=== PATIENT | male | born 1940 | race Caucasian/White ===

== ENCOUNTER 2017-09-01 07:53 | Emergency (ER) | payer MEDICARE ==
[2017-09-01 07:58] VITALS: RESP 18; TEMP 98.3
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
--- NOTE | 2017-09-01 09:00 | XR ---
EXAMINATION TYPE: XR ribs LT w pa chest xray DATE OF EXAM: 09/01/2017 COMPARISON: NONE HISTORY: Pain, fall TECHNIQUE: 2 views left RIBS supplemented chest. FINDINGS: Heart size normal. Pulmonary vasculature is normal. Small pleural fluid collection is prese nt. No pneumothorax is evident. There is a seventh posterior oblique rib fracture with slight displacement. IMPRESSION: 1. 7th posterior left rib fracture. 2. No pneumothorax
--- NOTE | 2017-09-01 09:21 | US ---
EXAMINATION TYPE: US abdomen limited DATE OF EXAM: 09/01/2017 COMPARISON: NONE CLINICAL HISTORY: Pain. Fall EXAM MEASUREMENTS: Spleen: 9.0 cm Left Kidney: 9.2 x 5.5 x 4.8 cm Spleen: wnl Left Kidney: 4.7 x 3.5 x 2.7 cm cyst upper pole. This connects to the upper pole of the kidney and i s exophytic. This demonstrates increased through transmission. no abnormal fluid collection noted. IMPRESSION: 1. No perisplenic fluid collection. Spleen is homogeneous. 2. Incidentally noted exophytic left upper pole 4.7 cm renal cyst.
[2017-09-01 09:25] VITALS: BP 147/87; PULSE 62
== END 2017-09-01 09:58 | disposition home or self-care (01) ==
LOC: EC 07:53
DX: S22.32XA Fracture of one rib, left side, initial encounter for closed fracture (principal); I10 Essential (primary) hypertension; M10.9 Gout, unspecified; I12.9 Hypertensive chronic kidney disease with stage 1 through stage 4 chronic kidney disease, or unspecified chronic kidney disease; N18.3 Chronic kidney disease, stage 3 (moderate); Z79.899 Other long term (current) drug therapy; Z88.6 Allergy status to analgesic agent; Z88.8 Allergy status to other drugs, medicaments and biological substances; V19.9XXA Pedal cyclist (driver) (passenger) injured in unspecified traffic accident, initial encounter
CPT/HCPCS: 76705; 99284

== ENCOUNTER 2017-10-10 08:32 | Emergency (ER) | payer MEDICARE ==
[2017-10-10 08:37] VITALS: BP 149/77; PULSE 66; TEMP 98.3
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
[2017-10-10 10:03] VITALS: RESP 17
--- NOTE | 2017-10-10 10:16 | US ---
EXAMINATION TYPE: US venous doppler duplex LE LT DATE OF EXAM: 10/10/2017 9:54 AM COMPARISON: NONE CLINICAL HISTORY: Left lower extremity pain. SIDE PERFORMED: left TECHNIQUE: The lower extremity deep venous system is examined utilizing real time linear array sonog timothy with graded compression, doppler sonography and color-flow sonography. VESSELS IMAGED: External Iliac Vein (EIV) Common Femoral Vein Deep Femoral Vein Greater Saphenous Vein * Femoral Vein Popliteal Vein Small Saphenous Vein * Proximal Calf Veins (* superficial vessels) Grayscale, color doppler, spectral doppler imaging performed of the deep veins of the left lower extr emity. There is normal flow, compressibility, vascular waveforms. Left Leg: Negative for DVT Somewhat technically difficult due to motion. IMPRESSION: Slightly limited examination due to patient motion, however no gross evidence of deep ve nous thrombosis within the left lower extremity.
== END 2017-10-10 11:31 | disposition home or self-care (01) ==
LOC: EC 08:32
DX: M79.89 Other specified soft tissue disorders (principal); I12.9 Hypertensive chronic kidney disease with stage 1 through stage 4 chronic kidney disease, or unspecified chronic kidney disease; N18.3 Chronic kidney disease, stage 3 (moderate); M10.9 Gout, unspecified; N28.1 Cyst of kidney, acquired; Z79.899 Other long term (current) drug therapy; Z88.6 Allergy status to analgesic agent; Z88.8 Allergy status to other drugs, medicaments and biological substances
CPT/HCPCS: 99283

== ENCOUNTER 2018-10-20 19:59 | Emergency (ER) | payer MEDICARE ==
--- NOTE | 2018-10-20 20:21 | ED ---
Upper Extremity HPI - General Chief Complaint: Extremity Injury, Upper Stated Complaint: Clavical pain Time Seen by Provider: 10/20/18 20:09 Source: patient, RN notes reviewed, old records reviewed Mode of arrival: ambulatory Limitations: no limitations - History of Present Illness Initial Comments: This is a 78-year-old male presents emergency department today feeling that his clavicles out of place. Patient reports that he was pulling himself up to the car and feels like maybe his causes clavicle to come and of normal location. Patient reports he has no pain with range of motion of his arms. Patient states he has some tenderness over the clavicle area. He reports that the area seemed to encroach onto his Cody's apple. He reports he could feel some abnormalities while swallowing. Patient states that he has had no difficulty breathing or cough. - Related Data Home Medications Medication Instructions Recorded Confirmed Acetaminophen [Tylenol] 650 mg PO Q6HR PRN 07/01/17 10/10/17 Ergocalciferol [Vitamin D2] 50,000 unit PO Q14D 07/01/17 10/10/17 Colchicine [Colcrys] 0.6 - 1.2 mg PO DIRECTED PRN 09/01/17 10/10/17 Febuxostat [Uloric] 40 mg PO DAILY 09/01/17 10/10/17 Felodipine [Felodipine ER] 2.5 mg PO DAILY 09/01/17 10/10/17 Multivit-Min/FA/Lycopen/Lutein 1 tab PO DAILY 09/01/17 10/10/17 [Centrum Silver Tablet] Polyethylene Glycol 3350 [Miralax] 17 gm PO DAILY PRN 09/01/17 10/10/17 Ascorbic Acid [Vitamin C] 1,000 mg PO DAILY 10/10/17 10/10/17 Calcium/Magnesium/Zinc 1 tab PO DAILY 10/10/17 10/10/17 [Dqxsvph-Wtajxvtxz-Jtji Tablet] Clotrimazole/Betamethasone Dip 1 applic TOPICAL DAILY PRN 10/10/17 10/10/17 [Lotrisone Cream] Cyanocobalamin (Vitamin B-12) 1,000 mcg PO DAILY 10/10/17 10/10/17 [Vitamin B-12] Docusate Sodium 250mg 250 mg PO DAILY PRN 10/10/17 10/10/17 Fish Oil/Dha/Epa [Fish Oil 1,200 1 cap PO DAILY 10/10/17 10/10/17 mg Fish Oil] Methocarbamol [Robaxin] 250 mg PO DAILY PRN 10/10/17 10/10/17 Potassium 99 mg PO DAILY 10/10/17 10/10/17 Ubidecarenone [Co Q-10] 100 mg PO DAILY 10/10/17 10/10/17 Vitamin A 8,000 unit PO DAILY 10/10/17 10/10/17 Vitamin E 100 unit PO DAILY 10/10/17 10/10/17 Previous Rx's Medication Instructions Recorded Hydrocodone/Acetaminophen [[place] 1 each PO Q6HR PRN #12 tab 10/10/17 5-325] Allergies Allergy/AdvReac Type Severity Reaction Status Date / Time MONIQUE Inhibitors Allergy Unknown Verified 10/10/17 09:20 allopurinol Allergy Swelling Verified 10/10/17 09:20 buspirone [From BuSpar] Allergy Unknown Verified 10/10/17 09:20 enalaprilat [From Vasotec] Allergy Anaphylaxis Verified 10/10/17 09:20 NSAIDS (Non-Steroidal Allergy Unknown Verified 10/10/17 09:20 Anti-Inflamma rosuvastatin [From Crestor] Allergy Unknown Verified 10/10/17 09:20 Xtjjdbk-Ivy-Gbe Reductase Allergy Unknown Verified 10/10/17 09:20 Inhibitor lisinopril AdvReac Unknown Verified 10/10/17 09:20 Review of Systems ROS Statement: Those systems with pertinent positive or pertinent negative responses have been documented in the HPI. ROS Other: All systems not noted in ROS Statement are negative. Past Medical History Past Medical History: Hypertension Additional Past Medical History / Comment(s): stg 3 kidney disease, gout, benign cysts on bilateral kidneys History of Any Multi-Drug Resistant Organisms: None Reported Past Surgical History: Tonsillectomy Additional Past Surgical History / Comment(s): hand surgery Past Psychological History: No Psychological Hx Reported Smoking Status: Never smoker Past Alcohol Use History: None Reported Past Drug Use History: None Reported General Exam - General Exam Comments Initial Comments: This is a 78-year-old male. Alert and oriented 3. No significant distress. Limitations: no limitations General appearance: alert, in no apparent distress Head exam: Present: atraumatic, normocephalic, normal inspection Eye exam: Present: normal appearance, PERRL, EOMI. Absent: scleral icterus, conjunctival injection, periorbital swelling ENT exam: Present: normal exam, mucous membranes moist Neck exam: Present: normal inspection, other (Palpable mass over the distal clavicle area.). Absent: tenderness, meningismus, lymphadenopathy Respiratory exam: Present: normal lung sounds bilaterally. Absent: respiratory distress, wheezes, rales, rhonchi, stridor Cardiovascular Exam: Present: regular rate, normal rhythm, normal heart sounds. Absent: systolic murmur, diastolic murmur, rubs, gallop, clicks GI/Abdominal exam: Present: soft, normal bowel sounds. Absent: distended, tenderness, guarding, rebound, rigid Extremities exam: Present: normal inspection, full ROM, normal capillary refill. Absent: tenderness, pedal edema, joint swelling, calf tenderness Back exam: Present: normal inspection Neurological exam: Present: alert, oriented X3, CN II-XII intact Psychiatric exam: Present: normal affect, normal mood Course Vital Signs 10/20/18 10/20/18 20:04 22:14 Temperature 98.3 F 98.6 F Pulse Rate 58 L 60 Respiratory 18 17 Rate Blood Pressure 146/79 153/83 O2 Sat by Pulse 98 97 Oximetry Medical Decision Making - Medical Decision Making 78-year-old male presents today for right clavicle discomfort. He thinks that he may have injured it while getting into the chair or of his car and lifting his body. At this time Patient does have some evidence of deformity over the sternoclavicular joint. Patient with a ligamentous tear causing the clavicle to be slightly displaced. Patient's clavicle x-ray was negative for any acute process chest x-ray was normal. I did discuss the Patient they will put him in a sling and he can follow-up with social services specialist. Discussed Motrin Tylenol for pain. Discussed return parameters. All questions were answered discussed no heavy lifting. - Radiology Data Radiology results: report reviewed Negative right clavicle exam. Chest x-rays negative for any acute process. On my evaluation does appear that there is difference between the sternum and the c lavicle. Disposition Clinical Impression: Sprain of sternoclavicular joint or ligament, Dislocation of clavicle, closed Disposition: HOME SELF-CARE Condition: Good Instructions (If sedation given, give patient instructions): Clavicle Fracture (ED) Additional Instructions: Motrin and Tylenol for pain. Remain in the sling. Follow-up with social services specialist. Return to the emergency department if any alarming signs or symptoms occur. Is patient prescribed a controlled substance at d/c from ED?: No Referrals: [facility],Clinic [Primary Care Provider] - 1-2 days Shantanu Noel DO [Medical Doctor] - 1-2 days Alvaro Rodríguez MD [STAFF PHYSICIAN] - 1-2 days Time of Disposition: 21:46
--- NOTE | 2018-10-20 20:37 | XR ---
EXAMINATION TYPE: XR clavicle RT DATE OF EXAM: 10/20/2018 COMPARISON: NONE HISTORY: Pain TECHNIQUE: 2 views FINDINGS: Clavicle appears intact. There is some spurring at the AC joint. There is no evidence of a fracture. IMPRESSION: Negative right clavicle exam.
--- NOTE | 2018-10-20 20:38 | XR ---
EXAMINATION TYPE: XR chest 2V DATE OF EXAM: 10/20/2018 COMPARISON: 09/01/2017 HISTORY: Chest pain TECHNIQUE: Frontal and lateral views of the chest are obtained. FINDINGS: There is no heart failure nor confluent pneumonic infiltrate. There is old healed left pos terior rib fracture. Costophrenic angles are clear. Heart size is normal. IMPRESSION: No active cardiopulmonary disease. There is clearing of left pleural fluid compared to o ld exam.
[2018-10-20] MEDS ORDERED: methylPREDNISolone SOD SUCCI 125 MG/2 ML VIAL IM ONE (20:49)
[2018-10-20] MEDS ORDERED: MORPHINE SULFATE 4 MG/ML SYRINGE IM STA (20:49)
[2018-10-20] MEDS ORDERED: ACET/COD 300 MG/30 MG STARTER PACK 6 TAB BTL PO STA (21:48)
[2018-10-20 22:17] VITALS: BP 153/83; PULSE 60; RESP 17; TEMP 98.6
== END 2018-10-20 22:17 | disposition home or self-care (01) ==
LOC: EC 19:59
DX: S43.61XA Sprain of right sternoclavicular joint, initial encounter (principal); S43.204A Unspecified dislocation of right sternoclavicular joint, initial encounter; I12.9 Hypertensive chronic kidney disease with stage 1 through stage 4 chronic kidney disease, or unspecified chronic kidney disease; N18.3 Chronic kidney disease, stage 3 (moderate); M10.9 Gout, unspecified; Z88.6 Allergy status to analgesic agent; Z88.8 Allergy status to other drugs, medicaments and biological substances; Z79.899 Other long term (current) drug therapy; X50.0XXA Overexertion from strenuous movement or load, initial encounter; Y93.89 Activity, other specified
CPT/HCPCS: 71046; 99284

== ENCOUNTER → 2023-06-15 | Outpatient (CLI) | payer MEDICARE | END | disposition home or self-care (01) | LOC: LABWHC1 10:50 | PROVIDERS: ATTEND Urology | DX: R97.20 Elevated prostate specific antigen [PSA] (principal) | CPT/HCPCS: 36415; 84153 ==

== ENCOUNTER → 2023-07-20 | Outpatient (CLI) | payer MEDICARE | END | disposition home or self-care (01) | LOC: LABWHC1 14:40 | PROVIDERS: ATTEND Urology | DX: R97.20 Elevated prostate specific antigen [PSA] (principal) | CPT/HCPCS: 36415; 84153 ==

== ENCOUNTER 2023-08-28 12:44 | Observation (INO) | payer MEDICARE ==
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
[2023-08-28 14:14] LABS: Basophils # (A) 0.1 k/uL (0-0.2); Basophils % (A) 1 %; Eosinophils # (A) 0.1 k/uL (0-0.7); Eosinophils % (A) 1 %; HCT 40.9 % (39.0-53.0); HGB 13.2 gm/dL (13.0-17.5); Lymphocytes # (A) 1.6 k/uL (1.0-4.8); Lymphocytes % (A) 20 %; MCH 30.7 pg (25.0-35.0); MCHC 32.3 g/dL (31.0-37.0); MCV 94.9 fL (80.0-100.0); Mean Platelet Volume 7.4; Monocytes # (A) 0.6 k/uL (0-1.0); Monocytes % (A) 8 %; Neutrophils # (A) 5.2 k/uL (1.3-7.7); Neutrophils % (A) 68 %; Platelet Count 255 k/uL (150-450); RBC 4.31 m/uL (4.30-5.90); RDW 13.8 % (11.5-15.5); WBC 7.7 k/uL (3.8-10.6)
[2023-08-28 14:21] LABS: Partial Thromboplastin Time 25.8 sec (22.0-30.0)
[2023-08-28 14:24] LABS: ALT 14 U/L (4-49); AST 25 U/L (17-59); African American GFR (CKD) 48 (>60 ml/min/1.73 sqM); Albumin 4.1 g/dL (3.5-5.0); Alkaline Phosphatase 67 U/L (38-126); Anion Gap 4 mmol/L; Blood Urea Nitrogen 35 mg/dL (9-20); Calcium 8.9 mg/dL (8.4-10.2); Carbon Dioxide 31 mmol/L (22-30); Chloride 104 mmol/L (98-107); Glucose 105 mg/dL (74-99); Non-African American GFR(CKD) 41 (>60 ml/min/1.73 sqM); Potassium 3.5 mmol/L (3.5-5.1); Sodium 139 mmol/L (137-145); Total Bilirubin 0.8 mg/dL (0.2-1.3); Total Protein 6.9 g/dL (6.3-8.2)
[2023-08-28] MEDS: SODIUM CHLORIDE 0.9% 500 ML 500 ML IV ONE (14:30)
--- NOTE | 2023-08-28 14:43 | ED ---
General Adult HPI - General Chief complaint: Fall Stated complaint: Fall Time Seen by Provider: 08/28/23 12:48 Source: patient, RN notes reviewed, old records reviewed Mode of arrival: EMS Limitations: no limitations - History of Present Illness Initial comments: 83 old male presenting with fall, head injury, and left arm and shoulder pain. Patient states he tripped on a curb falling striking his head. No loss consciousness. Patient is on Eliquis with history of atrial fibrillation. He denies significant lower extremity injury. States he was able to ambulate after the fall. - Related Data Home Medications Medication Instructions Recorded Confirmed Acetaminophen [Tylenol] 650 mg PO Q6HR PRN 07/01/17 10/10/17 Ergocalciferol [Vitamin D2] 50,000 unit PO Q14D 07/01/17 10/10/17 Colchicine [Colcrys] 0.6 - 1.2 mg PO DIRECTED PRN 09/01/17 10/10/17 Febuxostat [Uloric] 40 mg PO DAILY 09/01/17 10/10/17 Felodipine [Felodipine ER] 2.5 mg PO DAILY 09/01/17 10/10/17 Multivit-Min/FA/Lycopen/Lutein 1 tab PO DAILY 09/01/17 10/10/17 [Centrum Silver Tablet] polyethylene glycoL 3350 [Miralax] 17 gm PO DAILY PRN 09/01/17 10/10/17 Ascorbic Acid [Vitamin C] 1,000 mg PO DAILY 10/10/17 10/10/17 Calcium/Magnesium/Zinc 1 tab PO DAILY 10/10/17 10/10/17 [Qwltwjw-Pdyoepzht-Otco Tablet] Clotrimazole/Betamethasone Dip 1 applic TOPICAL DAILY PRN 10/10/17 10/10/17 [Lotrisone Cream] Cyanocobalamin (Vitamin B-12) 1,000 mcg PO DAILY 10/10/17 10/10/17 [Vitamin B-12] Docusate Sodium 250mg 250 mg PO DAILY PRN 10/10/17 10/10/17 Fish Oil/Dha/Epa [Fish Oil 1,200 1 cap PO DAILY 10/10/17 10/10/17 mg Fish Oil] Potassium 99 mg PO DAILY 10/10/17 10/10/17 Ubidecarenone [Co Q-10] 100 mg PO DAILY 10/10/17 10/10/17 Vitamin A [Vitamin A (8,000 Units 8,000 unit PO DAILY 10/10/17 10/10/17 = 2,400 MCG)] Vitamin E 100 unit PO DAILY 10/10/17 10/10/17 methocarbamoL [Robaxin] 250 mg PO DAILY PRN 10/10/17 10/10/17 Previous Rx's Medication Instructions Recorded Hydrocodone/Acetaminophen [Vale 1 each PO Q6HR PRN #12 tab 10/10/17 5-325] Allergies Allergy/AdvReac Type Severity Reaction Status Date / Time allopurinol Allergy Swelling Verified 08/28/23 16:49 enalaprilat [From Vasotec] Allergy Anaphylaxis Verified 08/28/23 16:49 MONIQUE Inhibitors AdvReac muscle/heart Verified 08/28/23 16:49 issues buspirone [From BuSpar] AdvReac muscle/heart Verified 08/28/23 16:49 issues digoxin AdvReac renal Verified 08/28/23 16:49 faliure diltiazem [From Cardizem] AdvReac migraine/vision Verified 08/28/23 16:49 issues, muscle/heart issues hydralazine AdvReac migraine/vision Verified 08/28/23 16:49 issues, muscle/heart issues influenza virus vaccine qs AdvReac migraine/vision Verified 08/28/23 16:49 [id number] (36 mos, up) issues/numbness [From Fluarix Quad] lisinopril AdvReac migraine/vision Verified 08/28/23 16:49 issues, muscle/heart issues metoprolol AdvReac migraine/vision Verified 08/28/23 16:49 issues, muscle/heart issues NSAIDS (Non-Steroidal AdvReac kidney/renal Verified 08/28/23 16:49 Anti-Inflamma issues rosuvastatin [From Crestor] AdvReac muscle/heart Verified 08/28/23 16:49 issues Zyjcsyx-SFA-PxL Reductase AdvReac muscle/heart Verified 08/28/23 16:49 Inhibitor issues [Wrfvncn-Spg-Vmh Reductase Inhibitor] Review of Systems ROS Statement: Those systems with pertinent positive or pertinent negative responses have been documented in the HPI. ROS Other: All systems not noted in ROS Statement are negative. Past Medical History Past Medical History: Atrial Fibrillation, Hyperlipidemia, Hypertension, Renal Disease Additional Past Medical History / Comment(s): stg 3 kidney disease, gout, benign cysts on bilateral kidneys History of Any Multi-Drug Resistant Organisms: None Reported Past Surgical History: Bowel Resection, Heart Catheterization, Hernia Repair, Tonsillectomy Additional Past Surgical History / Comment(s): hand surgery, colectomy, cardioversion Past Psychological History: No Psychological Hx Reported Smoking Status: Never smoker Past Alcohol Use History: None Reported Past Drug Use History: None Reported General Exam Limitations: no limitations General appearance: alert Head exam: Present: other (Large frontal hematoma with 3 cm eyebrow laceration) Eye exam: Present: PERRL, EOMI, periorbital swelling, periorbital tenderness Neck exam: Present: normal inspection, other (Collar in place) Respiratory exam: Present: normal lung sounds bilaterally. Absent: respiratory distress, wheezes Cardiovascular Exam: Present: tachycardia, irregular rhythm GI/Abdominal exam: Present: soft, distended. Absent: tenderness, guarding, rebound Extremities exam: Present: tenderness. Absent: full ROM (Pain with range of motion left shoulder and left elbow) Neurological exam: Present: alert, oriented X3, CN II-XII intact. Absent: motor sensory deficit Psychiatric exam: Present: normal affect, normal mood Skin exam: Present: warm, dry. Absent: cyanosis Course Vital Signs 08/28/23 12:50 Temperature 98.1 F Pulse Rate 102 H Respiratory 16 Rate Blood Pressure 201/128 O2 Sat by Pulse 97 Oximetry Procedures - Laceration Laceration #1 Consent Obtained: verbal consent Indication: laceration Site: face Size (cm): 3 Description: linear Anesthetic Used: lidocaine 1%, with epi Anesthesia Technique: local infiltration Amount (mls): 3 Pre-repair: wound explored, irrigated extensively, deep structures intact Size of Sutures: 5-0 Number of Sutures: 5 Technique: simple, interrupted Patient Tolerated Procedure: well Medical Decision Making - Medical Decision Making Was pt. sent in by a medical professional or institution (, PA, PAINTING MANAGER, urgent care, hospital, or [facility]...) When possible be specific @ -No Did you speak to anyone other than the patient for history (EMS, parent, family, police, friend...)? What history was obtained from this source @ -No Did you review nursing and triage notes (agree or disagree)? Why? @ -I reviewed and agree with nursing and triage notes Were old charts reviewed (outside hosp., previous admission, EMS record, old EKG, old radiological studies, urgent care reports/EKG's, [facility] records)? Report findings @ -No old charts were reviewed Differential Diagnosis (chest pain, altered mental status, abdominal pain women, abdominal pain men, vaginal bleeding, weakness, fever, dyspnea, syncope, headache, dizziness, GI bleed, back pain, seizure, CVA, palpatations, mental health, musculoskeletal)? @ -Not applicable EKG interpreted by me (3pts min.). @ -Atrial fibrillation with RVR rate of 106, QRS duration 131, QTc [address] segment elevation. X-rays interpreted by me (1pt min.). @X-rays obtained of the chest, shoulder, humerus, elbow are negative for acute bony abnormality CT interpreted by me (1pt min.). @ -CT brain negative for intracranial hemorrhage CT cervical spine negative for fracture or subluxation, CT of the facial bones shows a inferior orbital fracture with 4 mm displacement. There is no entrapment on exam. U/S interpreted by me (1pt. min.). @ -None done What testing was considered but not performed or refused? (CT, X-rays, U/S, labs)? Why? @ -None What meds were considered but not given or refused? Why? @ -None Did you discuss the management of the patient with other professionals (professionals i.e. , PA, PAINTING MANAGER, lab, RT, psych nurse, certified social workers in health care, aluminum hydroxide process operator, teacher, credit risk review officer, porter sample case)? Give summary @ -No Was smoking cessation discussed for >3mins.? @ -No Was critical care preformed (if so, how long)? @ -No Were there social determinants of health that impacted care today? How? (Homel essness, low income, unemployed, alcoholism, drug addiction, transportation, low edu. Level, literacy, decrease access to med. care, correction, rehab)? @ -No Was there de-escalation of care discussed even if they declined (Discuss DNR or withdrawal of care, Hospice)? DNR status @ -No What co-morbidities impacted this encounter? (DM, HTN, Smoking, COPD, CAD, Cancer, CVA, ARF, Chemo, Hep., AIDS, mental health diagnosis, sleep apnea, morbid obesity)? @A- Fibrillation on Eliquis Was patient admitted / discharged? Hospital course, mention meds given and route, prescriptions, significant lab abnormalities, going to OR and other pertinent info. @3-year-old male history of atrial fibrillation presents status post fall. Patient had facial trauma with hematoma and laceration above the left eye. His pupil exam is unremarkable and extraocular movements are normal. His vision is obscured by hematoma. But with eye opening he is able to see clearly. Patient is taken to CT for imaging of the brain, cervical spine, and facial bones. He does have a displaced 4 mm fracture of the inferior orbit. He has no entrapment. He has blood in the left maxillary sinus. He is placed on nose blowing precautions and started on prophylactic antibiotics. Patient also had injury to the left upper extremity, x-rays are negative for displaced fracture or dislocation. Patient has normal laboratory testing. He is initially in atrial fibrillation with a rate around 150 however this does improve without antiarrhythmic. Patient is hypertensive I believe this is related to pain. Cussed the case with Dr. Bello covering for surgery, patient's orbital fracture can be managed as an outpatient however given the patient's age, blood pressure and atrial fibrillation he will be admitted to internal medicine with consults to surgery, ophthalmology and ENT. Undiagnosed new problem with uncertain prognosis? @ -No Drug Therapy requiring intensive monitoring for toxicity (Heparin, Nitro, Insulin, Cardizem)? @ -No Were any procedures done? @ yes, Laceration repair Diagnosis/symptom? @ -Atrial fibrillation with RVR, fall, inf orbital fracture, laceration Acute, or Chronic, or Acute on Chronic? @ -[Acute Uncomplicated (without systemic symptoms) or Complicated (systemic symptoms)? @ complicated Side effects of treatment? @ -No Exacerbation, Progression, or Severe Exacerbation? @ -No Poses a threat to life or bodily function? How? (Chest pain, [place], [place], pneumonia, PE, COPD, DKA, ARF, appy, cholecystitis, CVA, Diverticulitis, Homicidal, Suicidal, threat to staff... and all critical care pts) @ -Yes, arrhythmia, traumatic injury from fall - Lab Data Result diagrams: 08/28/23 14:01 08/28/23 14:01 Lab Results 06/16/24 06/16/24 06/16/24 Range/Units 14:01 14:01 14:01 WBC 7.7 (3.8-10.6) k/uL RBC 4.31 (4.30-5.90) m/uL Hgb 13.2 (13.0-17.5) gm/dL Hct 40.9 (39.0-53.0) % MCV 94.9 (80.0-100.0) fL MCH 30.7 (25.0-35.0) pg MCHC 32.3 (31.0-37.0) g/dL RDW 13.8 (11.5-15.5) % Plt Count 255 (150-450) k/uL MPV 7.4 Neutrophils % 68 % Lymphocytes % 20 % Monocytes % 8 % Eosinophils % 1 % Basophils % 1 % Neutrophils # 5.2 (1.3-7.7) k/uL Lymphocytes # 1.6 (1.0-4.8) k/uL Monocytes # 0.6 (0-1.0) k/uL Eosinophils # 0.1 (0-0.7) k/uL Basophils # 0.1 (0-0.2) k/uL PT 11.0 (10.0-12.5) sec INR 1.0 (<1.2) APTT 25.8 (22.0-30.0) sec Sodium 139 (137-145) mmol/L Potassium 3.5 (3.5-5.1) mmol/L Chloride 104 (98-107) mmol/L Carbon Dioxide 31 H (22-30) mmol/L Anion Gap 4 mmol/L BUN 35 H (9-20) mg/dL Creatinine 1.56 H (0.66-1.25) mg/dL Est GFR (CKD-EPI)AfAm 48 (>60 ml/min/1.73 sqM) Est GFR (CKD-EPI)NonAf 41 (>60 ml/min/1.73 sqM) Glucose 105 H (74-99) mg/dL Calcium 8.9 (8.4-10.2) mg/dL Magnesium 2.0 (1.6-2.3) mg/dL Total Bilirubin 0.8 (0.2-1.3) mg/dL AST 25 (17-59) U/L ALT 14 (4-49) U/L Alkaline Phosphatase 67 (38-126) U/L Total Protein 6.9 (6.3-8.2) g/dL Albumin 4.1 (3.5-5.0) g/dL Disposition Clinical Impression: Fall, Atrial fibrillation, Fracture of inferior orbital wall Disposition: ADMITTED IP TO THIS HOSP Condition: Stable Is patient prescribed a controlled substance at d/c from ED?: No Referrals: [facility],Clinic [Primary Care Provider] - 1-2 days Time of Disposition: 17:04
--- NOTE | 2023-08-28 15:22 | XR ---
EXAMINATION TYPE: XR humerus LT DATE OF EXAM: 08/28/2023 3:17 PM CLINICAL INDICATION:Male, 83 years old with history of fall; [facility] COMPARISON: None TECHNIQUE: The left humerus was examined in frontal and lateral projections. FINDINGS: No evidence of acute osseous pathology, joint dislocation, or soft tissue swelling. The rem aining portions of the visualized chest are unremarkable. IMPRESSION: No acute osseous pathology.
--- NOTE | 2023-08-28 15:22 | XR ---
EXAMINATION TYPE: XR chest 2V DATE OF EXAM: 08/28/2023 3:17 PM CLINICAL INDICATION:Male, 83 years old with history of trauma; H COMPARISON: None TECHNIQUE: XR chest 2V Frontal and lateral views of the chest. FINDINGS: Lungs/Pleura: There is no evidence of pleural effusion, focal consolidation, or pneumothorax. Pulmonary vascularity: Unremarkable. Heart/mediastinum: Cardiomediastinal silhouette is unremarkable. Musculoskeletal: No acute osseous pathology. IMPRESSION: No acute cardiopulmonary disease/process.
--- NOTE | 2023-08-28 15:23 | XR ---
EXAMINATION TYPE: XR elbow complete LT DATE OF EXAM: 08/28/2023 3:17 PM CLINICAL INDICATION:Male, 83 years old with history of fall; [facility] COMPARISON: None TECHNIQUE: The left elbow was examined in AP, lateral, and oblique projections. FINDINGS: No evidence of any acute osseous pathology, joint dislocation, or soft tissue swelling is n oted. No evidence of joint effusion is present. IMPRESSION: No evidence of acute fracture.
--- NOTE | 2023-08-28 15:24 | XR ---
EXAMINATION TYPE: XR shoulder complete LT DATE OF EXAM: 08/28/2023 3:17 PM CLINICAL INDICATION:Male, 83 years old with history of fall; [facility] COMPARISON: None TECHNIQUE: The left shoulder was examined in AP, internally rotated and scapular Y projections. FINDINGS: No evidence of acute osseous pathology, joint dislocation, or soft tissue swelling. Osteoarthritic ch anges of the glenohumeral and acromioclavicular joint are identified. IMPRESSION: 1. No acute osseous pathology. 2. 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
[2023-08-28] MEDS: AMOXIC-POT CLAV 875-125MG 1 EACH TAB PO SCH (15:43)
[2023-08-28] MEDS ORDERED: ONDANSETRON 4 MG/2 ML VIAL IVP PRN (16:44)
[2023-08-28] MEDS ORDERED: NALOXONE 0.4 MG/ML 1 ML VIAL IV PRN (16:44)
[2023-08-28] MEDS: DIPH,PERTUS(ACELL)TETVAC-LF 0.5 ML VIAL IM ONE (17:05)
[2023-08-28] MEDS: SODIUM CHLORIDE 0.9% 1,000 ML IV SCH (17:06)
[2023-08-28] MEDS: HYDROcodone/APAP 5-325MG 1 EACH TAB PO STA (17:07)
[2023-08-28] MEDS ORDERED: ACETAMINOPHEN TAB 325 MG TAB PO PRN (17:17)
--- NOTE | 2023-08-28 18:10 | P.HPIM ---
History of Present Illness H&P Date: 08/28/23 Chief Complaint: Mechanical fall 83-year-old man with medical history of hypertension, permanent atrial fibrillation status post multiple failed ablations and cardioversions on Eliquis, CAD status post PCI presented for evaluation after mechanical fall. Patient says that he was walking on uneven cement when he tripped over a piece of cement and fell and hit his head as well as the left side of his body. At that point, his Apple Watch noticed that he had a fall and called emergency medical services who brought the patient into the hospital for further evaluation. Patient's only complaint at this time is pain as well as a little bit of anxiety. He otherwise denies fevers, chills, nausea, vomiting, chest pain, palpitations, presyncope, sweats, abdominal pain, constipation, diarrhea, dysuria, dyschezia, numbness/weakness of extremities. In the emergency room, patient was afebrile, 201/128, heart rate 102, 97% on room air. CBC was unremarkable. Basic metabolic panel showed CO2 of 31, BUN of 35, creatinine of 1.6. Liver function tests are unremarkable. Coags are unremarkable. Patient underwent CT of the brain, C-spine, facial bones; these show left inferior orbital wall fracture with 4 mm displacement and associated left proximal left maxillary sinus periorbital hematoma, no evidence of spinal fracture, intracranial process. Chest x-ray was negative for acute cardiopulmonary disease or process. Elbow x-ray was negative for fracture. Humerus x-ray was negative for fracture. Shoulder x-ray was negative for fracture. EKG demonstrated atrial fibrillation with RVR, low voltage QRS throughout, normal axis, prolonged QRS consistent with intraventricular conduction delay, no evidence of ischemia. Case was discussed with the emergency room provider, who initially recommended trauma admission, however, surgery deferred to medical admission with trauma consult. All Systems reviewed and pertinent positives and negatives noted in HPI, all other symptoms are negative Gen: in no apparent distress, resting comfortably in bed Eyes: PERRL, no scleral injection or icterus HENT: normocephalic, atraumatic, good hearing acuity, moist mucous membranes Neck: no tracheal deviation, full range of motion Resp: good air exchange, breathing comfortably with no accessory muscle use, no tactile fremitus, clear to auscultation bilaterally CVS: good distal perfusion x 4, trace pitting edema, tachycardic with an irregular rhythm, no appreciable murmurs GI: soft, NTTP, ND, no hepatosplenomegaly : no suprapubic tenderness, no CVAT, wick catheter not present MSK: no clubbing, no cyanosis, no noted contractures of extremities Skin: no noted rashes, petechiae; temperature of skin is appropriate Neuro: moving all extremities without signs of weakness, CN II-XII intact Psych: cooperative, euthymic mood, insight and judgment intact Labs and imaging as above Assessment/plan: Hypertensive urgency Permanent atrial fibrillation with RVR -Rate control with: Resume home verapamil -cardiology consult -Patient has allergies to multiple medications and classes including: MONIQUE inhibitors, beta-blockers, digoxin, hydralazine, Cardizem -Hold patient's apixaban -Pain control: Tylenol as needed, [place] as needed, morphine as needed for breakthrough -clonidine 0.1mg TID for BP, with goal to switch to PRN once better controlled pain -consideration of calcium channel duglas if no improvement of BP with pain control and clonidine Infraorbital Fracture Periorbital Hematoma -Pain control as above -Trauma consult -ENT consult -optho consult CAD -not on aspirin at home, but could consider on discharge Pt is Full Code DVT PPx: SCDs Past Medical History Past Medical History: Atrial Fibrillation, Hyperlipidemia, Hypertension, Renal Disease Additional Past Medical History / Comment(s): stg 3 kidney disease, gout, benign cysts on bilateral kidneys History of Any Multi-Drug Resistant Organisms: None Reported Past Surgical History: Bowel Resection, Heart Catheterization, Hernia Repair, Tonsillectomy Additional Past Surgical History / Comment(s): hand surgery, colectomy, cardioversion Past Psychological History: No Psychological Hx Reported Smoking Status: Never smoker Past Alcohol Use History: None Reported Past Drug Use History: None Reported Medications and Allergies Home Medications Medication Instructions Recorded Confirmed Type Acetaminophen [Tylenol] 650 mg PO Q6HR PRN 07/01/17 08/28/23 History Ergocalciferol [Vitamin D2] 50,000 unit PO Q14D 07/01/17 08/28/23 History Colchicine [Colcrys] 0.6 - 1.2 mg PO DIRECTED PRN 09/01/17 08/28/23 History Febuxostat [Uloric] 40 mg PO DIRECTED 09/01/17 08/28/23 History polyethylene glycoL 3350 [Miralax] 17 gm PO DAILY 09/01/17 08/28/23 History Ubidecarenone [Co Q-10] 100 mg PO DAILY 10/10/17 08/28/23 History Ammonium Lactate Lotion 1 applic TOPICAL BID 08/28/23 08/28/23 History [Lac-Hydrin 12% Lotion] Apixaban [Eliquis] 2.5 mg PO Q12H 08/28/23 08/28/23 History Ciprofloxacin HCl [Cipro] 500 mg PO DIRECTED 08/28/23 08/28/23 History Ezetimibe [Zetia] 10 mg PO HS 08/28/23 08/28/23 History Lactulose 10 gm PO DAILY 08/28/23 08/28/23 History Mv-Min/Folic/K1/Lycopen/Lutein 1 tab PO DAILY 08/28/23 08/28/23 History [Centrum Silver Men Tablet] Verapamil [Isoptin] 40 mg PO DIRECTED PRN 08/28/23 08/28/23 History calcitrioL [Rocaltrol] 0.25 mcg PO Q48H 08/28/23 08/28/23 History Allergies Allergy/AdvReac Type Severity Reaction Status Date / Time allopurinol Allergy Swelling Verified 08/28/23 16:49 enalaprilat [From Vasotec] Allergy Anaphylaxis Verified 08/28/23 16:49 MONIQUE Inhibitors AdvReac muscle/heart Verified 08/28/23 16:49 issues buspirone [From BuSpar] AdvReac muscle/heart Verified 08/28/23 16:49 issues digoxin AdvReac renal Verified 08/28/23 16:49 faliure diltiazem [From Cardizem] AdvReac migraine/vision Verified 08/28/23 16:49 issues, muscle/heart issues hydralazine AdvReac migraine/vision Verified 08/28/23 16:49 issues, muscle/heart issues influenza virus vaccine qs AdvReac migraine/vision Verified 08/28/23 16:49 1931-0065 (36 mos, up) issues/numbness [From Fluarix Quad] lisinopril AdvReac migraine/vision Verified 08/28/23 16:49 issues, muscle/heart issues metoprolol AdvReac migraine/vision Verified 08/28/23 16:49 issues, muscle/heart issues NSAIDS (Non-Steroidal AdvReac kidney/renal Verified 08/28/23 16:49 Anti-Inflamma issues rosuvastatin [From Crestor] AdvReac muscle/heart Verified 08/28/23 16:49 issues Npjwtbg-QQU-HsM Reductase AdvReac muscle/heart Verified 08/28/23 16:49 Inhibitor issues [Emtqync-Lyj-Wyi Reductase Inhibitor] Physical Exam Osteopathic Statement: *. No significant issues noted on an osteopathic structural exam other than those noted in the History and Physical/Consult. Vitals: Vital Signs Temp Pulse Resp BP Pulse Ox 08/28/23 17:10 98.7 F 94 18 174/105 97 08/28/23 16:00 102 H 16 152/101 98 08/28/23 14:00 98 16 151/105 99 08/28/23 12:50 98.1 F 102 H 16 201/128 97 Intake and Output 08/28/23 08/28/23 08/28/23 06:59 14:59 22:59 Other: Weight 93.44 kg Results CBC & Chem 7: 08/28/23 14:01 08/28/23 14:01 Labs: Abnormal Lab Results - Last 24 Hours (Table) 08/28/23 Range/Units 14:01 Carbon Dioxide 31 H (22-30) mmol/L BUN 35 H (9-20) mg/dL Creatinine 1.56 H (0.66-1.25) mg/dL Glucose 105 H (74-99) mg/dL
[2023-08-28] MEDS: cloNIDine HCL 0.1 MG TAB PO SCH (18:49)
[2023-08-28] MEDS: VERAPAMIL 40 MG TAB PO PRN (18:49)
[2023-08-28] MEDS: EZETIMIBE 10 MG TAB PO SCH (21:35)
[2023-08-28] MEDS: HYDROcodone/APAP 5-325MG 1 EACH TAB PO PRN (22:53)
[2023-08-29] MEDS: LACTULOSE 20 GM/30 ML CUP PO SCH (08:47)
[2023-08-29] MEDS: MULTIVITAMINS, THERA 1 EACH TAB PO SCH (08:47)
[2023-08-29] MEDS: polyethylene glycoL 3350 17 GM POWD.PACK PO SCH (08:47)
[2023-08-29] MEDS: Febuxostat [Uloric] 40 MG Tablet PO SCH (08:48)
[2023-08-29] MEDS ORDERED: NON FORMULARY DRUG (Ubidecarenone [Co Q-10] 100 MG Capsule) PO SCH (09:00)
--- NOTE | 2023-08-29 10:19 | P.CRDCN ---
History of Present Illness History of present illness: HISTORY OF PRESENT ILLNESS: This is a 83-year-old male with a past medical history significant for coronary artery disease, paroxysmal atrial fibrillation, hypertension, chronic kidney di sease, and hyperlipidemia with statin intolerance. Patient used to follow in the office with Dr. Correa but now follows with a fishing worker out of [facility]. We have been asked to see the patient in consultation for atrial fibrillation and hypertension. Patient examined at the bedside. Patient presented to the hospital after sustaining a mechanical fall at home. Patient tripped will walking on the concrete. Patient denied losing consciousness. Patient states he has had no previous falls in the past. He denies any chest pain or pressure. He denied any shortness of breath. Denied any dizziness or lightheadedness. He does state that he has some mild discomfort in the left side of his chest from his fall. Blood pressure slightly elevated this morning with a reading of 167/105. However previous reading is 139/76. DIAGNOSTICS: - EKG reveals A-fib with RVR. IVCD.. - Chest xray negative for acute process. - Laboratory data: WBC 7.7. Hemoglobin 13.2. Platelet count 255. Sodium 139. Potassium 3.5. BUN 35. Creatinine 1.56. Magnesium 2.0. - Current home cardiac medications include Zetia 10 mg at night, Eliquis 2.5 mg twice a day, verapamil 40 mg as directed. - Most recent echocardiogram obtained in 2020 reveals ejection fraction 55 to 60%. Patient does reveal he had an echocardiogram completed within the past month at his primary cardiology office. REVIEW OF SYSTEMS: At the time of my exam: CONSTITUTIONAL: Denies fever or chills. HEENT: Reports discomfort to his left eye secondary to fall CARDIOVASCULAR: Denies chest pain. Denies orthopnea. Denies PND. Denies palpitations RESPIRATORY: Denies shortness of breath. GASTROINTESTINAL: Denies abdominal pain. Denies nausea or vomiting. HEMATOLOGIC: Denies bleeding disorders. GENITOURINARY: Denies any blood in urine. SKIN: Denies pruitis. Denies rash. PHYSICAL EXAM: VITAL SIGNS: Reviewed. GENERAL: Well-developed in no acute distress. HEENT: Head is normocephalic. Pupils are equal, round. Sclerae anicteric. Mucous membranes of the mouth are moist. Patient with edema and erythema noted to left orbital region. Dressing over left eye noted. LUNGS: Respirations even and unlabored. Lungs essentially clear to auscultation bilaterally. HEART: Irregular rate and rhythm. S1 and S2 heard. ABDOMEN: Soft. Nondistended. Nontender. EXTREMITIES: Normal range of motion. No clubbing or cyanosis. Peripheral pulses intact. No lower extremity edema NEUROLOGIC: Awake and alert. Oriented x 3. ASSESSMENT: Status post mechanical fall Infraorbital fracture Periorbital hematoma Coronary artery disease with previous stenting of the OM1 Paroxysmal atrial fibrillation Hypertension Chronic kidney disease Hyperlipidemia with statin intolerance PLAN: Patient states he had an echocardiogram performed approximately 1 month ago with his primary fishing worker. Will obtain records. No need to repeat echocardio gram at this time Patient with multiple cardiac medication allergies including MONIQUE inhibitors, digoxin, Cardizem, hydralazine, lisinopril, metoprolol, and statins Continue to hold Eliquis until cleared by consultants. May resume from a cardiology standpoint. Continue telemetry monitoring Further recommendations pending patient course Nurse practitioner note has been reviewed by physician. Signing provider agrees with the documented findings, assessment, and plan of care documented by FRUIT STUFFER as a scribe. Past Medical History Past Medical History: Atrial Fibrillation, Hearing Disorder / Deafness, Hyperlipidemia, Hypertension, Prostate Disorder, Renal Disease Additional Past Medical History / Comment(s): stg 3 kidney disease, gout, benign cysts on bilateral kidneys, orthostatic hypotension, CKD stage 3-4, gout, hearing loss, degenerative lumbar spine changes. 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 History of Any Multi-Drug Resistant Organisms: None Reported Past Surgical History: Bowel Resection, Heart Catheterization, Heart Catheterization With Stent, Hernia Repair, Tonsillectomy Additional Past Surgical History / Comment(s): hand surgery, colectomy, cardioversion, carotid stents X2, cataract surgery with implants bilaterally Past Anesthesia/Blood Transfusion Reactions: No Reported Reaction Date of Last Stent Placement:: 12-05-2020 Past Psychological History: No Psychological Hx Reported Smoking Status: Never smoker Past Alcohol Use History: None Reported Past Drug Use History: None Reported Medications and Allergies Home Medications Medication Instructions Recorded Confirmed Type Acetaminophen [Tylenol] 650 mg PO Q6HR PRN 07/01/17 08/28/23 History Ergocalciferol [Vitamin D2] 50,000 unit PO Q14D 07/01/17 08/28/23 History Colchicine [Colcrys] 0.6 - 1.2 mg PO DIRECTED PRN 09/01/17 08/28/23 History Febuxostat [Uloric] 40 mg PO DAILY 09/01/17 08/28/23 History polyethylene glycoL 3350 [Miralax] 17 gm PO DAILY 09/01/17 08/28/23 History Ubidecarenone [Co Q-10] 100 mg PO DAILY 10/10/17 08/28/23 History Ammonium Lactate Lotion 1 applic TOPICAL BID 08/28/23 08/28/23 History [Lac-Hydrin 12% Lotion] Apixaban [Eliquis] 2.5 mg PO Q12H 08/28/23 08/28/23 History Ciprofloxacin HCl [Cipro] 500 mg PO DIRECTED 08/28/23 08/28/23 History Ezetimibe [Zetia] 10 mg PO HS 08/28/23 08/28/23 History Lactulose 10 gm PO DAILY 08/28/23 08/28/23 History Mv-Min/Folic/K1/Lycopen/Lutein 1 tab PO DAILY 08/28/23 08/28/23 History [Centrum Silver Men Tablet] Verapamil [Isoptin] 40 mg PO DIRECTED PRN 08/28/23 08/28/23 History calcitrioL [Rocaltrol] 0.25 mcg PO Q48H 08/28/23 08/28/23 History Allergies Allergy/AdvReac Type Severity Reaction Status Date / Time allopurinol Allergy Swelling Verified 08/28/23 16:49 enalaprilat [From Vasotec] Allergy Anaphylaxis Verified 08/28/23 16:49 MONIQUE Inhibitors AdvReac muscle/heart Verified 08/28/23 16:49 issues buspirone [From BuSpar] AdvReac muscle/heart Verified 08/28/23 16:49 issues digoxin AdvReac renal Verified 08/28/23 16:49 faliure diltiazem [From Cardizem] AdvReac migraine/vision Verified 08/28/23 16:49 issues, muscle/heart issues hydralazine AdvReac migraine/vision Verified 08/28/23 16:49 issues, muscle/heart issues influenza virus vaccine qs AdvReac migraine/vision Verified 08/28/23 16:49 [id number] (36 mos, up) issues/numbness [From Fluarix Quad] lisinopril AdvReac migraine/vision Verified 08/28/23 16:49 issues, muscle/heart issues metoprolol AdvReac migraine/vision Verified 08/28/23 16:49 issues, muscle/heart issues NSAIDS (Non-Steroidal AdvReac kidney/renal Verified 08/28/23 16:49 Anti-Inflamma issues rosuvastatin [From Crestor] AdvReac muscle/heart Verified 08/28/23 16:49 issues Palfazq-WWL-UhP Reductase AdvReac muscle/heart Verified 08/28/23 16:49 Inhibitor issues [Cbcvwuv-Ayw-Fxm Reductase Inhibitor] Physical Exam Vitals: Vital Signs Temp Pulse Pulse Resp BP BP BP 08/29/23 07:25 98.3 F 81 14 167/105 08/29/23 02:05 97.5 F L 75 15 139/76 08/28/23 22:35 97.6 F 80 15 145/86 08/28/23 21:21 97.7 F 89 18 143/94 08/28/23 21:19 75 18 143/94 08/28/23 19:31 78 18 117/78 08/28/23 18:39 94 16 185/117 08/28/23 17:10 98.7 F 94 18 174/105 08/28/23 16:00 102 H 16 152/101 08/28/23 14:00 98 16 151/105 08/28/23 12:50 98.1 F 102 H 16 201/128 Pulse Ox 08/29/23 07:25 97 08/29/23 02:05 98 08/28/23 22:35 98 08/28/23 21:21 100 08/28/23 21:19 100 08/28/23 19:31 96 08/28/23 18:39 98 08/28/23 17:10 97 08/28/23 16:00 98 08/28/23 14:00 99 08/28/23 12:50 97 Intake and Output 08/28/23 08/29/23 08/29/23 22:59 06:59 14:59 Output Total 800 Balance -800 Output: Urine 800 Other: Voiding Method Urinal Weight 93.44 kg Results 08/28/23 14:01 08/28/23 14:01 Cardiac Enzymes 08/28/23 Range/Units 14:01 AST 25 (17-59) U/L Coagulation 08/28/23 Range/Units 14:01 PT 11.0 (10.0-12.5) sec APTT 25.8 (22.0-30.0) sec CBC 08/28/23 Range/Units 14:01 WBC 7.7 (3.8-10.6) k/uL RBC 4.31 (4.30-5.90) m/uL Hgb 13.2 (13.0-17.5) gm/dL Hct 40.9 (39.0-53.0) % Plt Count 255 (150-450) k/uL Comprehensive Metabolic Panel 08/28/23 Range/Units 14:01 Sodium 139 (137-145) mmol/L Potassium 3.5 (3.5-5.1) mmol/L Chloride 104 (98-107) mmol/L Carbon Dioxide 31 H (22-30) mmol/L BUN 35 H (9-20) mg/dL Creatinine 1.56 H (0.66-1.25) mg/dL Glucose 105 H (74-99) mg/dL Calcium 8.9 (8.4-10.2) mg/dL AST 25 (17-59) U/L ALT 14 (4-49) U/L Alkaline Phosphatase 67 (38-126) U/L Total Protein 6.9 (6.3-8.2) g/dL Albumin 4.1 (3.5-5.0) g/dL Current Medications Generic Name Dose Route Start Last Admin Trade Name Freq PRN Reason Stop Dose Admin Acetaminophen 650 mg 08/28/23 17:17 Acetaminophen Tab 325 Mg Tab PO Q6HR PRN Pain Hydrocodone Bitart/Acetaminophen 1 each 08/28/23 16:44 08/28/23 22:53 Hydrocodone/Apap 5-325mg 1 Each Tab PO 1 each Q4HR PRN Administration Moderate Pain (Scale 4 to 6) Amoxicillin/Clavulanate Potassium 1 each 08/28/23 15:15 08/28/23 21:34 Amoxic-Pot Clav 875-125mg 1 Each Tab PO 1 each Q12HR VIKTOR Administration Protocol Calcitriol 0.25 mcg 08/30/23 09:00 Calcitriol 0.25 Mcg Cap PO Q48H VIKTOR Clonidine 0.1 mg 08/28/23 18:00 08/28/23 21:33 Clonidine Hcl 0.1 Mg Tab PO 0.1 mg TID VIKTOR Administration Ezetimibe 10 mg 08/28/23 21:00 08/28/23 21:35 Ezetimibe 10 Mg Tab PO 10 mg HS VIKTOR Administration Sodium Chloride 1,000 mls @ 75 mls/hr 08/28/23 16:45 08/29/23 08:21 Saline 0.9% IV Not Given .[id number] [facility] Lactulose 10 gm 08/29/23 09:00 Lactulose 20 Gm/30 Ml Cup PO DAILY [facility] Morphine Sulfate 2 mg 08/28/23 17:47 Morphine Sulfate 2 Mg/Ml Syringe IVP Q4HR PRN Pain/Discomfort Multivitamins 1 each 08/29/23 09:00 Multivitamins, Thera 1 Each Tab PO DAILY [facility] Naloxone HCl 0.2 mg 08/28/23 16:44 Naloxone 0.4 Mg/Ml 1 Ml Vial IV Q2M PRN Opioid Reversal Febuxostat [Uloric] 40 mg 08/29/23 09:00 40 Mg Tablet PO DAILY [facility] Ondansetron HCl 4 mg 08/28/23 16:44 Ondansetron 4 Mg/2 Ml Vial IVP Q8HR PRN Nausea And Vomiting Polyethylene Glycol 17 gm 08/29/23 09:00 Polyethylene Glycol 3350 17 Gm Powd.Pack PO DAILY [facility] Verapamil HCl 40 mg 08/28/23 17:17 08/28/23 18:49 Verapamil 40 Mg Tab PO 40 mg DAILY PRN Administration high bp/pulse Intake and Output 08/28/23 08/29/23 08/29/23 22:59 06:59 14:59 Output Total 800 Balance -800 Output: Urine 800 Other: Voiding Method Urinal Weight 93.44 kg 08/28/23 14:01 08/28/23 14:01
--- NOTE | 2023-08-29 13:57 | P.GSCN ---
History of Present Illness Consult date: 08/29/23 History of present illness: CHIEF COMPLAINT: Fall HISTORY OF PRESENT ILLNESS: This is a 83-year-old male who tripped on the curb. He reports that the cement was uneven area was raised. He fell and hit his head. He denies any loss of consciousness. But he does complain of pain along the left arm and the left upper chest and abdomen. He denies any nausea or vomiting. He is on Eliquis at home for his atrial fibrillation. Patient was found to have evidence of an inferior orbital fracture and left periorbital hematoma. Ophthalmology and ENT services have been consulted. PAST MEDICAL HISTORY: See list. PAST SURGICAL HISTORY: See list. MEDICATIONS: See list. ALLERGIES: See list. SOCIAL HISTORY: No illicit drug use. REVIEW OF SYSTEMS: CONSTITUTIONAL: Denies fever or chills. HEENT: Denies blurred vision, vision changes, or eye pain. Denies hemoptysis ENDOCRINE: Denies heat or cold intolerance. CARDIOVASCULAR: Denies chest pain or pressure. RESPIRATORY: No shortness of breath. GASTROINTESTINAL: Denies nausea or vomiting. NEURO: Denies history of seizures. PSYCH: No depression or suicidal ideation HEMATOLOGIC: Denies bleeding disorders. LYMPHATIC: The patient denies any lumps and bumps around the neck. GENITOURINARY: Denies any blood in urine or increased urinary frequency. MUSCULOSKELETAL: Denies myalgias. Denies joint swelling. Denies decreased range of motion beyond patients baseline. SKIN: Denies pruitis. Denies rash. PHYSICAL EXAM: VITAL SIGNS: Reviewed GENERAL: Well-developed in no acute distress. HEENT: Left periorbital hematoma. Patient is unable to open eye. Area is swollen and bruised. Tender. Head traumatic hears conversational speech. No nasal drainage. NECK: Supple without lymphadenopathy. CHEST: Non-labored respirations and equal bilateral excursions. CARDIOVASCULAR: Palpable 2+ radial pulses. ABDOMEN: Soft. Nondistended. Nontender during exam. No bruising or ecchymosis MUSCULOSKELETAL: No clubbing or cyanosis. NEUROLOGIC: No focal or lateralizing signs. Cranial nerves II through XII grossly intact. PSYCH: Appropriate affect. Alert and oriented to person, place and time. SKIN: Well perfused. Good skin turgor. Extremities left elbow is swollen. Patient has full range of motion but tender with range of motion. Patient has tenderness to the left humerus and left lower arm. Patient has abrasions on bilateral knees LABORATORY DATA: WBC 7.7 Hgb 13.2 platelets 255 INR 1.0 Sodium is 139 potassium 3.5 creatinine 1.56 LFTs normal IMAGING: CT scan of head, cervical spine and face reports left inferior orbital wall fracture with 4 mm displacement and associated left proximal left maxillary sinus. Additional periorbital hematoma. No evidence for spinal fracture. No acute intracranial process. No evidence of cervical spine fracture. Mild multilevel degenerative disc disease. Chest x-ray no acute cardiopulmonary process Left elbow x-ray no acute fracture Left humerus x-ray no acute osseous pathology Left shoulder x-ray no acute osseous pathology. Mild osteoarthritic changes of the glenohumeral and AC joint ASSESSMENT: 1. Trip and fall 2. Left inferior orbital wall fracture and periorbital hematoma 3. Left-sided chest wall and upper abdominal wall pain PLAN: -CT scan of chest and abdomen ordered for further evaluation of pain due to fall -Consult orthopedic service regarding left arm pain -Continue pain management -Continue cardiac diet -Hold Sonia Physician Asphalt Paver note has been reviewed by physician. Signing provider agrees with the documented findings, assessment, and plan of care. Past Medical History Past Medical History: Atrial Fibrillation, Hearing Disorder / Deafness, Hyperlipidemia, Hypertension, Prostate Disorder, Renal Disease Additional Past Medical History / Comment(s): stg 3 kidney disease, gout, benign cysts on bilateral kidneys, orthostatic hypotension, CKD stage 3-4, gout, hearing loss, degenerative lumbar spine changes. 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 History of Any Multi-Drug Resistant Organisms: None Reported Past Surgical History: Bowel Resection, Heart Catheterization, Heart Catheterization With Stent, Hernia Repair, Tonsillectomy Additional Past Surgical History / Comment(s): hand surgery, colectomy, cardioversion, carotid stents X2, cataract surgery with implants bilaterally Past Anesthesia/Blood Transfusion Reactions: No Reported Reaction Date of Last Stent Placement:: 12-05-2020 Past Psychological History: No Psychological Hx Reported Smoking Status: Never smoker Past Alcohol Use History: None Reported Past Drug Use History: None Reported Medications and Allergies Home Medications Medication Instructions Recorded Confirmed Type Acetaminophen [Tylenol] 650 mg PO Q6HR PRN 07/01/17 08/28/23 History Ergocalciferol [Vitamin D2] 50,000 unit PO Q14D 07/01/17 08/28/23 History Colchicine [Colcrys] 0.6 - 1.2 mg PO DIRECTED PRN 09/01/17 08/28/23 History Febuxostat [Uloric] 40 mg PO DAILY 09/01/17 08/28/23 History polyethylene glycoL 3350 [Miralax] 17 gm PO DAILY 09/01/17 08/28/23 History Ubidecarenone [Co Q-10] 100 mg PO DAILY 10/10/17 08/28/23 History Ammonium Lactate Lotion 1 applic TOPICAL BID 08/28/23 08/28/23 History [Lac-Hydrin 12% Lotion] Apixaban [Eliquis] 2.5 mg PO Q12H 08/28/23 08/28/23 History Ciprofloxacin HCl [Cipro] 500 mg PO DIRECTED 08/28/23 08/28/23 History Ezetimibe [Zetia] 10 mg PO HS 08/28/23 08/28/23 History Lactulose 10 gm PO DAILY 08/28/23 08/28/23 History Mv-Min/Folic/K1/Lycopen/Lutein 1 tab PO DAILY 08/28/23 08/28/23 History [Centrum Silver Men Tablet] Verapamil [Isoptin] 40 mg PO DIRECTED PRN 08/28/23 08/28/23 History calcitrioL [Rocaltrol] 0.25 mcg PO Q48H 08/28/23 08/28/23 History Allergies Allergy/AdvReac Type Severity Reaction Status Date / Time allopurinol Allergy Swelling Verified 08/28/23 16:49 enalaprilat [From Vasotec] Allergy Anaphylaxis Verified 08/28/23 16:49 MONIQUE Inhibitors AdvReac muscle/heart Verified 08/28/23 16:49 issues buspirone [From BuSpar] AdvReac muscle/heart Verified 08/28/23 16:49 issues digoxin AdvReac renal Verified 08/28/23 16:49 faliure diltiazem [From Cardizem] AdvReac migraine/vision Verified 08/28/23 16:49 issues, muscle/heart issues hydralazine AdvReac migraine/vision Verified 08/28/23 16:49 issues, muscle/heart issues influenza virus vaccine qs AdvReac migraine/vision Verified 08/28/23 16:49 [id number] (36 mos, up) issues/numbness [From Fluarix Quad] lisinopril AdvReac migraine/vision Verified 08/28/23 16:49 issues, muscle/heart issues metoprolol AdvReac migraine/vision Verified 08/28/23 16:49 issues, muscle/heart issues NSAIDS (Non-Steroidal AdvReac kidney/renal Verified 08/28/23 16:49 Anti-Inflamma issues rosuvastatin [From Crestor] AdvReac muscle/heart Verified 08/28/23 16:49 issues Wnqiius-GIU-YuD Reductase AdvReac muscle/heart Verified 08/28/23 16:49 Inhibitor issues [Ucasjfd-Hpd-Cxj Reductase Inhibitor] Surgical - Exam Vital Signs Temp Pulse Resp BP Pulse Ox 98.1 F 102 H 16 201/128 97 08/28/23 12:50 08/28/23 12:50 08/28/23 12:50 08/28/23 12:50 08/28/23 12:50 Results - Labs 08/28/23 14:01 08/28/23 14:01 Abnormal Lab Results - Last 24 Hours (Table) 08/28/23 Range/Units 14:01 Carbon Dioxide 31 H (22-30) mmol/L BUN 35 H (9-20) mg/dL Creatinine 1.56 H (0.66-1.25) mg/dL Glucose 105 H (74-99) mg/dL Diabetes panel 08/28/23 Range/Units 14:01 Sodium 139 (137-145) mmol/L Potassium 3.5 (3.5-5.1) mmol/L Chloride 104 (98-107) mmol/L Carbon Dioxide 31 H (22-30) mmol/L BUN 35 H (9-20) mg/dL Creatinine 1.56 H (0.66-1.25) mg/dL Glucose 105 H (74-99) mg/dL Calcium 8.9 (8.4-10.2) mg/dL AST 25 (17-59) U/L ALT 14 (4-49) U/L Alkaline Phosphatase 67 (38-126) U/L Total Protein 6.9 (6.3-8.2) g/dL Albumin 4.1 (3.5-5.0) g/dL Calcium panel 08/28/23 Range/Units 14:01 Calcium 8.9 (8.4-10.2) mg/dL Albumin 4.1 (3.5-5.0) g/dL Pituitary panel 08/28/23 Range/Units 14:01 Sodium 139 (137-145) mmol/L Potassium 3.5 (3.5-5.1) mmol/L Chloride 104 (98-107) mmol/L Carbon Dioxide 31 H (22-30) mmol/L BUN 35 H (9-20) mg/dL Creatinine 1.56 H (0.66-1.25) mg/dL Glucose 105 H (74-99) mg/dL Calcium 8.9 (8.4-10.2) mg/dL Adrenal panel 08/28/23 Range/Units 14:01 Sodium 139 (137-145) mmol/L Potassium 3.5 (3.5-5.1) mmol/L Chloride 104 (98-107) mmol/L Carbon Dioxide 31 H (22-30) mmol/L BUN 35 H (9-20) mg/dL Creatinine 1.56 H (0.66-1.25) mg/dL Glucose 105 H (74-99) mg/dL Calcium 8.9 (8.4-10.2) mg/dL Total Bilirubin 0.8 (0.2-1.3) mg/dL AST 25 (17-59) U/L ALT 14 (4-49) U/L Alkaline Phosphatase 67 (38-126) U/L Total Protein 6.9 (6.3-8.2) g/dL Albumin 4.1 (3.5-5.0) g/dL
--- NOTE | 2023-08-29 14:21 | CT ---
EXAMINATION TYPE: CT chest abdomen wo con DATE OF EXAM: 08/29/2023 COMPARISON: None HISTORY: fall, upper left chest pain CT DLP: 804.4 mGycm CONTRAST: Unenhanced CT of the chest and abdomen was performed. Lack of contrast does limit evaluation. Chest: LUNGS: There is no evidence for pneumothorax. The lungs are clear and free of focal contusion or ate lectasis. No pleural effusion MEDIASTINUM: Thoracic aorta is of normal caliber without CT evidence to suggest traumatic induced ao rtic injury. No mediastinal fluid or blood. No pericardial fluid or cardia abnormality. HILAR STRUCTURES: No evidence for mass. No hilar adenopathy is appreciated. OTHER: No significant abnormality. OSSEOUS: No displaced osseous fractures identified. CT ABDOMEN AND PELVIS FINDINGS: LIVER/GB: No focal laceration, contusion or subcapsular hemorrhage. No calcified gallstones. No s pace occupying hepatic lesion. Biliary tree is of normal caliber. PANCREAS: No evidence for transection. No inflammation. No distinct mass. SPLEEN: No focal laceration, contusion or subcapsular hemorrhage. ADRENALS: No hemorrhage. No nodule. No thickening. KIDNEYS/BLADDER: No focal laceration, contusion or subcapsular hemorrhage. No hydronephrosis. No n ephrolithiasis. No disctinct renal mass. BOWEL: Bowel is intact. No evidence for pneumoperitoneum. LYMPH NODES: No greater than 1cm abdominal or pelvic lymph nodes areappreciated. AORTA: No traumatic aortic injury visualized. OSSEOUS STRUCTURES: No displaced fracture seen. OTHER: No evidence for hemoperitoneum. IMPRESSION: 1. No evidence for traumatic injury to the chest or abdomen on this limited unenhanced study..
--- NOTE | 2023-08-29 14:30 | P.CNOR ---
History of Present Illness - [facility] Consult date: 08/29/23 History of present illness: Patient is an 83-year-old male presenting the hospital yesterday status post fall at home. Orthopedics was consulted due to left arm pain. Patient was seen this afternoon on [address]. patient states yesterday at home he fell hitting his head and landing onto his left arm/shoulder. He said he tripped on a curb when he fell. Patient denies any loss of consciousness. Patient does have a history of atrial fibrillation for which she is on Eliquis. He does have a past medical history celiac for hypertension, atrial fibrillation, multiple patient and cardioversions, CAD. Patient denies any previous orthopedic surgeries in the past. Patient says he does have history of gout. Patient states most of the pa in he is having his left arm is located on the left side of the chest along the rib cage. Patient mentions he does have some pain in the elbow and states he is not able to fully extend the left elbow. Patient denies any current pain over the left shoulder or left hand/wrist. X-rays of the left shoulder left elbow and left humerus were performed. All are negative for any acute pathologies. Negative for any fractures. 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 Patient states he is able to raise his left shoulder but is having without any significant pain. Patient denies any loss of bowel/bladder control. Patient mentions when he does taken deep breaths, he does get increased pain in the left side of the chest. X-ray of the chest is negative for any fractures or pulmonary pathology. Past Medical History Past Medical History: Atrial Fibrillation, Hearing Disorder / Deafness, Hyperlipidemia, Hypertension, Prostate Disorder, Renal Disease Additional Past Medical History / Comment(s): stg 3 kidney disease, gout, benign cysts on bilateral kidneys, orthostatic hypotension, CKD stage 3-4, gout, hearing loss, degenerative lumbar spine changes. 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 History of Any Multi-Drug Resistant Organisms: None Reported Past Surgical History: Bowel Resection, Heart Catheterization, Heart Catheterization With Stent, Hernia Repair, Tonsillectomy Additional Past Surgical History / Comment(s): hand surgery, colectomy, cardioversion, carotid stents X2, cataract surgery with implants bilaterally Past Anesthesia/Blood Transfusion Reactions: No Reported Reaction Date of Last Stent Placement:: 12-05-2020 Past Psychological History: No Psychological Hx Reported Smoking Status: Never smoker Past Alcohol Use History: None Reported Past Drug Use History: None Reported Medications and Allergies Home Medications Medication Instructions Recorded Confirmed Type Acetaminophen [Tylenol] 650 mg PO Q6HR PRN 07/01/17 08/28/23 History Ergocalciferol [Vitamin D2] 50,000 unit PO Q14D 07/01/17 08/28/23 History Colchicine [Colcrys] 0.6 - 1.2 mg PO DIRECTED PRN 09/01/17 08/28/23 History Febuxostat [Uloric] 40 mg PO DAILY 09/01/17 08/28/23 History polyethylene glycoL 3350 [Miralax] 17 gm PO DAILY 09/01/17 08/28/23 History Ubidecarenone [Co Q-10] 100 mg PO DAILY 10/10/17 08/28/23 History Ammonium Lactate Lotion 1 applic TOPICAL BID 08/28/23 08/28/23 History [Lac-Hydrin 12% Lotion] Apixaban [Eliquis] 2.5 mg PO Q12H 08/28/23 08/28/23 History Ciprofloxacin HCl [Cipro] 500 mg PO DIRECTED 08/28/23 08/28/23 History Ezetimibe [Zetia] 10 mg PO HS 08/28/23 08/28/23 History Lactulose 10 gm PO DAILY 08/28/23 08/28/23 History Mv-Min/Folic/K1/Lycopen/Lutein 1 tab PO DAILY 08/28/23 08/28/23 History [Centrum Silver Men Tablet] Verapamil [Isoptin] 40 mg PO DIRECTED PRN 08/28/23 08/28/23 History calcitrioL [Rocaltrol] 0.25 mcg PO Q48H 08/28/23 08/28/23 History Allergies Allergy/AdvReac Type Severity Reaction Status Date / Time allopurinol Allergy Swelling Verified 08/28/23 16:49 enalaprilat [From Vasotec] Allergy Anaphylaxis Verified 08/28/23 16:49 MONIQUE Inhibitors AdvReac muscle/heart Verified 08/28/23 16:49 issues buspirone [From BuSpar] AdvReac muscle/heart Verified 08/28/23 16:49 issues digoxin AdvReac renal Verified 08/28/23 16:49 faliure diltiazem [From Cardizem] AdvReac migraine/vision Verified 08/28/23 16:49 issues, muscle/heart issues hydralazine AdvReac migraine/vision Verified 08/28/23 16:49 issues, muscle/heart issues influenza virus vaccine qs AdvReac migraine/vision Verified 08/28/23 16:49 [id number] (36 mos, up) issues/numbness [From Fluarix Quad] lisinopril AdvReac migraine/vision Verified 08/28/23 16:49 issues, muscle/heart issues metoprolol AdvReac migraine/vision Verified 08/28/23 16:49 issues, muscle/heart issues NSAIDS (Non-Steroidal AdvReac kidney/renal Verified 08/28/23 16:49 Anti-Inflamma issues rosuvastatin [From Crestor] AdvReac muscle/heart Verified 08/28/23 16:49 issues Exbuzrl-AVR-QhY Reductase AdvReac muscle/heart Verified 08/28/23 16:49 Inhibitor issues [Sedbqbi-Yma-Vtb Reductase Inhibitor] Physical Examination Inspection: Negative for any significant ecchymosis or erythema throughout the left upper extremity on exam. Positive for some mild swelling diffusely throughout the left elbow. Sensation: Equal, symmetric, bilaterally intact at the upper extremities Palpation: Moderate to significant tenderness to palpation over the left-sided rib cage anteriorly. Minimal tenderness to palpation diffusely throughout the left elbow. Nontender to palpation throughout rest exam. Range of motion: Patient has full range of motion throughout right upper extremity exam. Patient does have limited range of motion the left elbow on exam. Patient lacks about 15 full extension in the left elbow. Patient does have full range motion throughout the left wrist in flexion/extension. Patient does have good range of motion in the left shoulder in abduction and external/internal rotation. Patient is able to raise the left shoulder to about 140. Motor: 5/5 sewer builder strength bilaterally. 5/5 in bilateral wrist in flexion- extension. 4/5 in resisted shoulder forward elevation and resisted abduction external/internal rotation. 4/5 in resisted elbow flexion/extension bilaterally. Neurovascular: Radial pulse intact, 2+ bilaterally. Cap refill under 3 seconds in digits of upper extremities. Special tests: Negative Homans bilaterally. Negative Spurling bilaterally. Results - Labs Labs: Abnormal Lab Results - Last 24 Hours (Table) 08/28/23 Range/Units 14:01 Carbon Dioxide 31 H (22-30) mmol/L BUN 35 H (9-20) mg/dL Creatinine 1.56 H (0.66-1.25) mg/dL Glucose 105 H (74-99) mg/dL H & H 08/28/23 Range/Units 14:01 Hgb 13.2 (13.0-17.5) gm/dL Hct 40.9 (39.0-53.0) % Coagulation 08/28/23 Range/Units 14:01 INR 1.0 (<1.2) Result Diagrams: 08/28/23 14:01 08/28/23 14:01 - Diagnostic results Shoulder x-ray: report reviewed, image reviewed (X-ray left shoulder is negative for any fractures. Positive for acromioclavicular joint osteoarthrosis. Very minimal to no humeral joint osteoarthrosis) Elbow x-ray: report reviewed, image reviewed (X-ray of the left elbow negative for any acute fractures or dislocations) Assessment and Plan Assessment: 1. Left-sided chest wall pain; left elbow pain s/p fall from standing Plan: 1. Left-sided chest wall pain; left elbow pain s/p fall from standing - x-rays of the left shoulder left humerus and left elbow are negative for any acute fractures. Negative for any dislocations. Left shoulder does present with some acromioclavicular joint osteoarthrosis. Negative for any significant soft tissue swelling. At this time we're not recommending any emergency urgent orthopedic surgical intervention. We are recommending incentive spirometer use 10 times every hour as well as pain medication as needed. Patient may perform gentle range of motion exercises of the left upper extremity. Patient is stable for orthopedic standpoint. Patient may follow-up in the outpatient setting as needed for further evaluation of his left upper extremity. Orthopedics will be available as needed to see patient during his stay in hospital. 2. Appreciate medical management 3. Pain management - norco; tylenol 4. GI prophylaxis - lactulose; miralax 5. DVT prophylaxis recs 6. PT/OT - patient is encouraged to perform gentle range of motion exercises of the left upper extremity as tolerated. 7. Encourage incentive spirometer use 8. Appreciate consult Time with Patient: Less than 30
--- NOTE | 2023-08-29 15:09 | P.PN ---
Subjective Progress Note Date: 08/29/23 83-year-old man with medical history of hypertension, permanent atrial fibrillation status post multiple failed ablations and cardioversions on Eliquis, CAD status post PCI presented for evaluation after mechanical fall. Patient says that he was walking on uneven cement when he tripped over a piece of cement and fell and hit his head as well as the left side of his body. At that point, his Apple Watch noticed that he had a fall and called emergency medical services who brought the patient into the hospital for further evaluation. Patient's only complaint at this time is pain as well as a little b it of anxiety. He otherwise denies fevers, chills, nausea, vomiting, chest pain, palpitations, presyncope, sweats, abdominal pain, constipation, diarrhea, dysuria, dyschezia, numbness/weakness of extremities. In the emergency room, patient was afebrile, 201/128, heart rate 102, 97% on room air. CBC was unremarkable. Basic metabolic panel showed CO2 of 31, BUN of 35, creatinine of 1.6. Liver function tests are unremarkable. Coags are unremarkable. Patient underwent CT of the brain, C-spine, facial bones; these show left inferior orbital wall fracture with 4 mm displacement and associated left proximal left maxillary sinus periorbital hematoma, no evidence of spinal fracture, intracranial process. Chest x-ray was negative for acute cardiopulmonary disease or process. Elbow x-ray was negative for fracture. Humerus x-ray was negative for fracture. Shoulder x-ray was negative for f racture. EKG demonstrated atrial fibrillation with RVR, low voltage QRS throughout, normal axis, prolonged QRS consistent with intraventricular conduction delay, no evidence of ischemia. Case was discussed with the emergency room provider, who initially recommended trauma admission, however, surgery deferred to medical admission with trauma consult. 08/28 Patient was seen and examined. He reports 7/10 pain in his chest radiating to the left arm. Pain is worse with movement of his left arm. CT chest and abdomen was obtained which was negative for acute traumatic pathology. States recently had an Echo done with his checkroom chief. Cardiology recommends obtaining records. Orthopedic Sx recommends no intervention at this time. Awaiting ENT and Opthalmology consult. General: non toxic, no distress, appears at stated age Derm: warm, dry Head: atraumatic, normocephalic, symmetric Eyes: EOMI, no lid lag, anicteric sclera Mouth: no lip lesion, mucus membranes moist Cardiovascular: Good distal perfusion in all 4 extremities. Irregular S1S2. Lungs: Breathing comfortably , no accessory muscle use, CTA BL Ext: no gross muscle atrophy, no edema, no contractures Neuro: no focal neuro deficits Psych: Alert, oriented, appropriate affect Based on my assessment of this patient, this patient meets a high complexity level of care. Hypertensive urgency: Clonidine 0.1 mg PO TID. Verapamil 40 mg PO QD PRN. Expected to improve with pain control. Permanent atrial fibrillation with RVR: Verapamil as above. Restart Eliquis when cleared by surgery. Infraorbital Fracture: ENT and Opthalmology consult pending. Periorbital Hematoma CAD CKD: Calcitriol 0.25 mg PO Q48. Dyslipidemia: Zetia 10 mg PO QHS. Gout: Febuxostat 40 mg PO QD. CODE STATUS: FULL CODE. DVT Prophylaxis: Lovenox. GI Prophylaxis: Protonix IV Designated medical POA if patient is not able to make medical decisions for themselves: I have reviewed the following partner management consultant notes: Cardiology, Surgery, Ortho. I have reviewed the results of the following tests: CT Abd/Chest I have ordered the following tests: I have discussed the care of this patient with the following independent historian: I have independently interpreted the following test below: I have discussed the management of this patient with the following physician: Objective - Vital Signs Vital signs: Vital Signs Temp 98.3 F 08/29/23 07:25 Pulse 81 08/29/23 07:25 Resp 14 08/29/23 07:25 BP 167/105 08/29/23 07:25 Pulse Ox 97 08/29/23 07:25 FiO2 Intake & Output 08/28/23 08/29/23 08/29/23 18:59 06:59 18:59 Output Total 800 1200 Balance -800 -1200 Weight 93.44 kg 93.44 kg Output: Urine 800 1200 Other: Voiding Method Urinal - Labs CBC & Chem 7: 08/28/23 14:01 08/28/23 14:01
--- NOTE | 2023-08-29 18:04 | P.GSCN ---
History of Present Illness Consult date: 08/29/23 Reason for Consult: Facial injury after a fall Requesting physician: Aniceto Guerrero History of present illness: Kosta is an 83-year-old male who tripped on cement and fell onto his face. He sustained a left facial laceration and CAT scan demonstrates a left inferior orbital fracture. He has a large amount of swelling over the left eye with some ecchymosis present. Denies loss of consciousness. Was on Eliquis at. Bleeding was under good control and the laceration was repaired in the emergency room. Patient is resting comfortably and I been asked to consult regarding this orbital fracture. Patient denies any double vision or visual loss. He tells me that ophthalmology has seen the patient and could not find any orbital injury. He denies any neurologic symptoms such as headache, memory loss, numbness weakness etc. etc. Review of Systems - Constitutional Reports as per HPI - EENT Ears, nose, mouth and throat: Reports as per HPI - Cardiovascular Reports as per HPI - Respiratory Reports as per HPI - Gastrointestinal Reports as per HPI - Genitourinary Reports as per HPI - Musculoskeletal Reports as per HPI - Integumentary Reports as per HPI - Neurological Reports as per HPI - Psychiatric Reports as per HPI Past Medical History Past Medical History: Atrial Fibrillation, Hearing Disorder / Deafness, Hyperlipidemia, Hypertension, Prostate Disorder, Renal Disease Additional Past Medical History / Comment(s): stg 3 kidney disease, gout, benign cysts on bilateral kidneys, orthostatic hypotension, CKD stage 3-4, gout, hearing loss, degenerative lumbar spine changes. 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 History of Any Multi-Drug Resistant Organisms: None Reported Past Surgical History: Bowel Resection, Heart Catheterization, Heart Catheterization With Stent, Hernia Repair, Tonsillectomy Additional Past Surgical History / Comment(s): hand surgery, colectomy, cardioversion, carotid stents X2, cataract surgery with implants bilaterally Past Anesthesia/Blood Transfusion Reactions: No Reported Reaction Date of Last Stent Placement:: 12-05-2020 Past Psychological History: No Psychological Hx Reported Smoking Status: Never smoker Past Alcohol Use History: None Reported Past Drug Use History: None Reported Medications and Allergies Home Medications Medication Instructions Recorded Confirmed Type Acetaminophen [Tylenol] 650 mg PO Q6HR PRN 07/01/17 08/28/23 History Ergocalciferol [Vitamin D2] 50,000 unit PO Q14D 07/01/17 08/28/23 History Colchicine [Colcrys] 0.6 - 1.2 mg PO DIRECTED PRN 09/01/17 08/28/23 History Febuxostat [Uloric] 40 mg PO DAILY 09/01/17 08/28/23 History polyethylene glycoL 3350 [Miralax] 17 gm PO DAILY 09/01/17 08/28/23 History Ubidecarenone [Co Q-10] 100 mg PO DAILY 10/10/17 08/28/23 History Ammonium Lactate Lotion 1 applic TOPICAL BID 08/28/23 08/28/23 History [Lac-Hydrin 12% Lotion] Apixaban [Eliquis] 2.5 mg PO Q12H 08/28/23 08/28/23 History Ciprofloxacin HCl [Cipro] 500 mg PO DIRECTED 08/28/23 08/28/23 History Ezetimibe [Zetia] 10 mg PO HS 08/28/23 08/28/23 History Lactulose 10 gm PO DAILY 08/28/23 08/28/23 History Mv-Min/Folic/K1/Lycopen/Lutein 1 tab PO DAILY 08/28/23 08/28/23 History [Centrum Silver Men Tablet] Verapamil [Isoptin] 40 mg PO DIRECTED PRN 08/28/23 08/28/23 History calcitrioL [Rocaltrol] 0.25 mcg PO Q48H 08/28/23 08/28/23 History Allergies Allergy/AdvReac Type Severity Reaction Status Date / Time allopurinol Allergy Swelling Verified 08/28/23 16:49 enalaprilat [From Vasotec] Allergy Anaphylaxis Verified 08/28/23 16:49 MONIQUE Inhibitors AdvReac muscle/heart Verified 08/28/23 16:49 issues buspirone [From BuSpar] AdvReac muscle/heart Verified 08/28/23 16:49 issues digoxin AdvReac renal Verified 08/28/23 16:49 faliure diltiazem [From Cardizem] AdvReac migraine/vision Verified 08/28/23 16:49 issues, muscle/heart issues hydralazine AdvReac migraine/vision Verified 08/28/23 16:49 issues, muscle/heart issues influenza virus vaccine qs AdvReac migraine/vision Verified 08/28/23 16:49 [id number] (36 mos, up) issues/numbness [From Fluarix Quad] lisinopril AdvReac migraine/vision Verified 08/28/23 16:49 issues, muscle/heart issues metoprolol AdvReac migraine/vision Verified 08/28/23 16:49 issues, muscle/heart issues NSAIDS (Non-Steroidal AdvReac kidney/renal Verified 08/28/23 16:49 Anti-Inflamma issues rosuvastatin [From Crestor] AdvReac muscle/heart Verified 08/28/23 16:49 issues Zfbrzfr-HKP-TpD Reductase AdvReac muscle/heart Verified 08/28/23 16:49 Inhibitor issues [Nenqtma-Dfo-Ziu Reductase Inhibitor] Surgical - Exam Osteopathic Statement: *. No significant issues noted on an osteopathic structural exam other than those noted in the History and Physical/Consult. Vital Signs Temp Pulse Resp BP Pulse Ox 98.1 F 102 H 16 201/128 97 08/28/23 12:50 08/28/23 12:50 08/28/23 12:50 08/28/23 12:50 08/28/23 12:50 - General well developed, well nourished, no distress - Eyes Patient has significant left orbital swelling with ecchymosis. Extraocular muscles are intact there is no signs of any entrapment. Difficult to determine if there is an an medical billing and coding specialist because of the severe swelling. No visual changes noted. The patient no entrapment is seen. PERRL, normal ocular movement - ENT Head is asymmetric and the fact that he has a laceration to the left supraorbital rim that has been repaired along with significant swelling to the left eyelid left face with ecchymosis present. Auricles well-formed canals are clear nose is patent THROAT unremarkable neck is unremarkable normal pinna, normal nares, normal mucosa, no hearing loss, no congestion - Neck no masses, no bruits, trachea midline - Respiratory normal expansion, normal respiratory effort - Integumentary Left supraorbital laceration noted repaired - Neurologic normal coordination, normal sensation - Musculoskeletal normal gait, normal posture - Psychiatric oriented to time, oriented to person, oriented to place, speech is normal, memory intact Results - Labs 08/28/23 14:01 08/28/23 14:01 Assessment and Plan (1) Facial contusion Current Visit: Yes Status: Acute Code(s): S00.83XA - CONTUSION OF OTHER PART OF HEAD, INITIAL ENCOUNTER SNOMED Code(s): 574290449 (2) Facial laceration Current Visit: Yes Status: Acute Code(s): S01.81XA - LACERATION W/O FOREIGN BODY OF OTH PART OF HEAD, INIT ENCNTR SNOMED Code(s): 019419706 Plan: This patient has inferior floor fracture. The floor is deviated in a downward position by about 3 mm. He has no entrapment on examination. No visual loss. Difficult to determine if there is an enophthalmos and the fact he has very significant eyelid and periorbital edema and it is difficult to determine the eye position at this time. I am recommending that he does not blow his nose for 3 months, Neosporin ointment to the laceration, he should rest with his head elevated at least 20 degrees elevation [id number]. No heavy lifting or bending. I will be retiring next week so he will be following up with my partner Dr. Macario. He has been told about the restrictions where he cannot blow his nose no heavy lifting and bending etc. He is to call us immediately if there is any visual changes such as double vision loss of vision etc. Currently he denies any double vision or visual changes. I have given the patient my name I partners name and address and phone number and also have him come to our office in 2 weeks after discharge for an orbital reassessment on the left side. Time with Patient: Greater than 30
[2023-08-29] MEDS: MORPHINE SULFATE 2 MG/ML SYRINGE IVP PRN (20:36)
[2023-08-29] MEDS: NEOMYCIN-BACITRACIN-POLY OINT 14 GM TUBE TOPICAL SCH (20:39)
[2023-08-30 08:32] VITALS: BP 166/107; PULSE 94; RESP 14; TEMP 98.1
[2023-08-30] MEDS ORDERED: cloNIDine HCL 0.1 MG TAB PO PRN (08:33)
[2023-08-30] MEDS ORDERED: APIXABAN 2.5 MG TABLET PO SCH (09:00)
--- NOTE | 2023-08-30 09:48 | P.DS ---
Providers Date of admission: 08/28/23 16:49 Expected date of discharge: 08/30/23 Attending physician: Aniceto Guerrero MD Consults: 08/28/23 16:44 Consult Physician Routine Consulting Provider: Flash Rubin Consult Reason/Comments: Inferior orbital fracture Do you want consulting provider notified?: Yes Consult Physician Routine Consulting Provider: Tracy Bello Consult Reason/Comments: Fall, facial injury Do you want consulting provider notified?: Already Contacted 08/28/23 16:49 Consult Physician Routine Consulting Provider: Madhu Lion Consult Reason/Comments: Inferior orbital fracture, wo entrapment Do you want consulting provider notified?: Yes, Notify in am 08/28/23 18:09 Consult Physician Routine Consulting Provider: Alonzo Robert Consult Reason/Comments: perm a fib with rvr, htn urgency Do you want consulting provider notified?: Yes 08/29/23 13:14 Consult Physician Routine Consulting Provider: Vijay Nava Consult Reason/Comments: left arm pain fall Do you want consulting provider notified?: Yes Primary care physician: [facility] Course: 83-year-old man with medical history of hypertension, permanent atrial fi brillation status post multiple failed ablations and cardioversions on Eliquis, CAD status post PCI presented for evaluation after mechanical fall. Patient says that he was walking on uneven cement when he tripped over a piece of cement and fell and hit his head as well as the left side of his body. At that point, his Apple Watch noticed that he had a fall and called emergency medical services who brought the patient into the hospital for further evaluation. Patient's only complaint at this time is pain as well as a little bit of anxiety. He otherwise denies fevers, chills, nausea, vomiting, chest pain, palpitations, presyncope, sweats, abdominal pain, constipation, diarrhea, dysuria, dyschezia, numbness/weakness of extremities. In the emergency room, patient was afebrile, 201/128, heart rate 102, 97% on room air. CBC was unremarkable. Basic metabolic panel showed CO2 of 31, BUN of 35, creatinine of 1.6. Liver function tests are unremarkable. Coags are unremarkable. Patient underwent CT of the brain, C-spine, facial bones; these show left inferior orbital wall fracture with 4 mm displacement and associated left proximal left maxillary sinus periorbital hematoma, no evidence of spinal fracture, intracranial process. Chest x-ray was negative for acute cardiopulmonary disease or process. Elbow x-ray was negative for fracture. Humerus x-ray was negative for fracture. Shoulder x-ray was negative for fracture. EKG demonstrated atrial fibrillation with RVR, low voltage QRS throughout, normal axis, prolonged QRS consistent with intraventricular conduction delay, no evidence of ischemia. Case was discussed with the emergency room provider, who initially recommended trauma admission, however, surgery deferred to medical admission with trauma consult. 08/28 Patient was seen and examined. He reports 7/10 pain in his chest radiating to the left arm. Pain is worse with movement of his left arm. CT chest and abdomen was obtained which was negative for acute traumatic pathology. States recently had an Echo done with his bilingual case manager. Cardiology recommends obtaining records. Orthopedic Sx recommends no intervention at this time. Awaiting ENT and Opthalmology consult. 08/29 Patient was seen and examined. Well controlled pain. BP is 149/89. Pain well controlled on [place] PRN. ENT and Opthalmology recommends outpatient follow up in 2 weeks. Hopeful plans for discharge home today. Follow up with ENT and Opthalmology within 1 week of discharge. Advised to continue his Verapamil PRN as he was doing prior to admission and monitor his BP and HR for further titration of medication with his PCP. [place] PRN prescribed for pain control. Hold Eliquis for one week until follow up with ENT and Opthalmology for clearance to resume. General: non toxic, no distress, appears at stated age Derm: warm, dry Head: atraumatic, normocephalic, symmetric Eyes: EOMI, no lid lag, anicteric sclera, severe swelling and echymosis over the left orbital (improved), laceration over the L eye Mouth: no lip lesion, mucus membranes moist Cardiovascular: Good distal perfusion in all 4 extremities. Irregular S1S2. Lungs: Breathing comfortably , no accessory muscle use, CTA BL Ext: no gross muscle atrophy, no edema, no contractures Neuro: no focal neuro deficits Psych: Alert, oriented, appropriate affect Discharge Diagnosis: Hypertensive urgency Permanent atrial fibrillation with RVR Infraorbital Fracture Periorbital Hematoma CAD CKD Dyslipidemia Gout This complex discharge took 35 minutes to complete. Patient Condition at Discharge: Stable Plan - Discharge Summary New Discharge Prescriptions: New HYDROcodone/APAP 5-325MG [[place] 5-325] 1 each PO Q6HR PRN #12 tab PRN Reason: Moderate Pain (Scale 4 To 6) Uusadxvv-Ylmqwbkofj-Iaua Oint [Triple Antibiotic Ointment] 1 applic TOPICAL TID #1 each Amoxic-Pot Clav 875-125Mg [Augmentin 875-125] 1 each PO Q12HR #10 tab Continue Ergocalciferol [Vitamin D2 (DRISDOL)] 50,000 unit PO Q14D Acetaminophen [Tylenol] 650 mg PO Q6HR PRN PRN Reason: Pain polyethylene glycoL 3350 [Miralax] 17 gm PO DAILY Colchicine [Colcrys] 0.6 - 1.2 mg PO DIRECTED PRN PRN Reason: ACUTE GOUT flare up Febuxostat [Uloric] 40 mg PO DAILY Ubidecarenone [Co Q-10] 100 mg PO DAILY Verapamil [Isoptin] 40 mg PO DIRECTED PRN PRN Reason: high bp/pulse Lactulose 10 gm PO DAILY calcitrioL [Rocaltrol] 0.25 mcg PO Q48H Ezetimibe [Zetia] 10 mg PO HS Ammonium Lactate Lotion [Lac-Hydrin 12% Lotion] 1 applic TOPICAL BID Mv-Min/Folic/K1/Lycopen/Lutein [Centrum Silver Men Tablet] 1 tab PO DAILY Discontinued Ciprofloxacin HCl [Cipro] 500 mg PO DIRECTED Apixaban [Eliquis] 2.5 mg PO Q12H Discharge Medication List Acetaminophen [Tylenol] 650 mg PO Q6HR PRN 07/01/17 [History] Ergocalciferol [Vitamin D2 (DRISDOL)] 50,000 unit PO Q14D 07/01/17 [History] Colchicine [Colcrys] 0.6 - 1.2 mg PO DIRECTED PRN 09/01/17 [History] Febuxostat [Uloric] 40 mg PO DAILY 09/01/17 [History] polyethylene glycoL 3350 [Miralax] 17 gm PO DAILY 09/01/17 [History] Ubidecarenone [Co Q-10] 100 mg PO DAILY 10/10/17 [History] Ammonium Lactate Lotion [Lac-Hydrin 12% Lotion] 1 applic TOPICAL BID 08/28/23 [History] Ezetimibe [Zetia] 10 mg PO HS 08/28/23 [History] Lactulose 10 gm PO DAILY 08/28/23 [History] Mv-Min/Folic/K1/Lycopen/Lutein [Centrum Silver Men Tablet] 1 tab PO DAILY 08/28/23 [History] Verapamil [Isoptin] 40 mg PO DIRECTED PRN 08/28/23 [History] calcitrioL [Rocaltrol] 0.25 mcg PO Q48H 08/28/23 [History] Amoxic-Pot Clav 875-125Mg [Augmentin 875-125] 1 each PO Q12HR #10 tab 08/30/23 [Rx] HYDROcodone/APAP 5-325MG [[place] 5-325] 1 each PO Q6HR PRN #12 tab 08/30/23 [Rx] Kzzoedhy-Oqzgahaxez-Fqmr Oint [Triple Antibiotic Ointment] 1 applic TOPICAL TID #1 each 08/30/23 [Rx] Follow up Appointment(s)/Referral(s): Madhu Lion MD [STAFF PHYSICIAN] - 09/07/23 11:50 am Dagoberto Macario MD [STAFF PHYSICIAN] - 1 Week [facility]inic [Primary Care Provider] - 1-2 days Activity/Diet/Wound Care/Special Instructions: Do not blow nose for 3 months Rest with head elevated 20 degrees or greater [id number] Use bacitracin ointment or Neosporin ointment to the left supraorbital laceration Sutures are to be removed in 7 to 10 days from the left facial laceration Call immediately if there is signs of double vision or visual loss No heavy lifting or bending Please hold Eliquis until follow up with ENT and Opthalmology next week for medical clearance to resume. Discharge Disposition: HOME SELF-CARE
--- NOTE | 2023-08-30 10:09 | P.PN ---
Subjective HISTORY OF PRESENT ILLNESS: This is a 83-year-old male with a past medical history significant for coronary artery disease, paroxysmal atrial fibrillation, hypertension, chronic kidney disease, and hyperlipidemia with statin intolerance. Patient used to follow in the office with Dr. Correa but now follows with a mental health therapist out of [facility]. We have been asked to see the patient in consultation for atrial fibrillation and hypertension. Patient examined at the bedside. Patient presented to the hospital after sustaining a mechanical fall at home. Patient tripped will walking on the concrete. Patient denied losing consciousness. Patient states he has had no previous falls in the past. He denies any chest pain or pressure. He denied any shortness of breath. Denied any dizziness or lightheadedness. He does state that he has some mild discomfort in the left side of his chest from his fall. Blood pressure slightly elevated this morning with a reading of 167/105. However previous reading is 139/76. DIAGNOSTICS: - EKG reveals A-fib with RVR. IVCD.. - Chest xray negative for acute process. - Laboratory data: WBC 7.7. Hemoglobin 13.2. Platelet count 255. Sodium 139. Potassium 3.5. BUN 35. Creatinine 1.56. Magnesium 2.0. - Current home cardiac medications include Zetia 10 mg at night, Eliquis 2.5 mg twice a day, verapamil 40 mg as directed. - Most recent echocardiogram obtained in 2020 reveals ejection fraction 55 to 60%. Patient does reveal he had an echocardiogram completed within the past month at his primary cardiology office. 08/30/2023 Patient examined this morning the bedside. Patient denies chest pain or pressure. He denies shortness of breath. Heart rates are well-controlled in the 80s. Vital signs are stable. Patient has been cleared to resume Eliquis by consulting providers. Records from [facility] reviewed. PHYSICAL EXAM: VITAL SIGNS: Reviewed. GENERAL: Well-developed in no acute distress. HEENT: Head is normocephalic. Pupils are equal, round. Sclerae anicteric. Mucous membranes of the mouth are moist. Patient with edema and erythema noted to left orbital region. Dressing over left eye noted. LUNGS: Respirations even and unlabored. Lungs essentially clear to auscultation bilaterally. HEART: Irregular rate and rhythm. S1 and S2 heard. ABDOMEN: Soft. Nondistended. Nontender. EXTREMITIES: Normal range of motion. No clubbing or cyanosis. Peripheral pulses intact. No lower extremity edema NEUROLOGIC: Awake and alert. Oriented x 3. ASSESSMENT: Status post mechanical fall Infraorbital fracture Periorbital hematoma Coronary artery disease with previous stenting of the OM1 Paroxysmal atrial fibrillation Hypertension Chronic kidney disease Hyperlipidemia with statin intolerance PLAN: Continue current cardiac medications Resume Eliquis from a cardiac standpoint Patient is stable from a cardiac perspective with no further inpatient recommendations We will sign off. Please reconsult if needed. Patient instructed to follow-up with his primary mental health therapist in 1 week. Nurse practitioner note has been reviewed by physician. Signing provider agrees with the documented findings, assessment, and plan of care documented by BATCH TANK CONTROLLER as a scribe. Objective - Vital Signs Vital signs: Vital Signs Temp 98.1 F 08/30/23 08:00 Pulse 94 08/30/23 08:00 Resp 14 08/30/23 08:00 BP 166/107 08/30/23 08:00 Pulse Ox 97 08/30/23 08:00 FiO2 Intake & Output 08/29/23 08/30/23 08/30/23 18:59 06:59 18:59 Intake Total 118 236 Output Total 1200 800 Balance -1082 -800 236 Intake: Oral 118 236 Output: Urine 1200 800 Other: Voiding Method Urinal # Voids 2 - Labs CBC & Chem 7: 08/28/23 14:01 08/28/23 14:01
--- NOTE | 2023-08-30 10:22 | CONS ---
CONSULTATION OPHTHALMOLOGY CONSULTATION CHIEF COMPLAINT: Swelling and pain, left orbit. HISTORY OF PRESENT ILLNESS: The above patient is an 83-year-old male, who had a fall with trauma to the left orbital area. The patient presented to the ER with swelling and pain. This has been consistent since the time of the fall and is slightly improved. The patient denies any double vision or vision loss. REVIEW OF SYSTEMS: Negative for fevers, chills, nausea, vomiting, chest pain, shortness of breath, abdominal pain, constipation, diarrhea, or numbness/weakness of extremities. PAST MEDICAL HISTORY: The patient is unclear on his medical history. However, he reports he has seen a primary doctor regularly. The patient does report stage 3 kidney disease, gout, atrial fibrillation, hyperlipidemia, hypertension. MEDICATIONS: Home medications include, 1. Acetaminophen. 2. Vitamin D2. 3. Uloric. 4. MiraLAX. 5. CoQ10. 6. Eliquis. 7. Zetia. 8. Verapamil. 9. Calcitriol. ALLERGIES: Drug allergies include allopurinol, Vasotec, MONIQUE inhibitors, buspirone, digoxin, Cardizem, hydralazine, lisinopril, metoprolol, NSAIDs, statins. PAST SURGICAL HISTORY: Previous cataract surgery in both eyes, colectomy, cardioversion. SOCIAL HISTORY: The patient denies smoking or alcohol use. PHYSICAL EXAMINATION: Visual acuity is 20/50 at near in the right eye and 20/50 at near in the left eye with correction. Pupils are equal and round and reactive to light and accommodation. There is no afferent pupillary defect. Extraocular movements are full in both eyes. Intra- ocular pressure is within normal limits in both eyes. There is a large laceration that has been sutured above the left brow and along the methodist. There is ecchymosis and edema of the upper and lower lids. The conjunctiva is clear and white. The cornea is clear and there is no abrasion. The anterior chambers within normal limits. There is no sign of orbital rupture. The pupil is round and within normal limits. Iris is within normal limits. There is a posterior chamber intra-ocular lens. Posterior exam is limited; however, appears within normal limits. ASSESSMENT AND PLAN: 1. Left inferior orbital wall fracture. There is a 4 mm displacement and associated fluid in the sinus. There is no diplopia. There are no limitations of extraocular movements at this time. Therefore, observation is recommended. The patient is also seeing facial surgery for consultation. The patient understands that if vision loss occurs or diplopia occurs, to contact our office immediately or to report to the ER if such symptoms occur. I also recommend Afrin nasal spray twice daily for 3 days. No nose blowing for 2 weeks and antibiotics at the discretion of the primary physician. Fortunately, there was no orbital rupture or other trauma from the fall. 2. Laceration of the brow, left side. This is well sutured and approximated. Recommend observation. Thank you for allowing me to participate in this patient's care. I recommend followup as an outpatient 1 week after discharge. MMODL / IJN: [id number] /
--- NOTE | 2023-08-30 13:01 | P.PN ---
Subjective Progress Note Date: 08/30/23 CHIEF COMPLAINT: Trip and fall HISTORY OF PRESENT ILLNESS: Patient has been up and ambulating. He has no new pain. CT scan of the chest and abdomen was negative. Patient evaluated by orthopedic service and cleared for discharge. Patient's pain is controlled. He is tolerating diet. He has been seen by ENT service. Patient denies any double vision. PHYSICAL EXAM: VITAL SIGNS: Reviewed. GENERAL: no acute distress. HEENT: Patient is able to open his left eye. Patient has bruising around the l eft eye ABDOMEN: Soft. Nondistended. Nontender. NEUROLOGIC: Alert and oriented. Cranial nerves II through XII grossly intact. ASSESSMENT: 1. Trip and fall 2. Left inferior orbital wall fracture and periorbital hematoma 3. Left-sided chest wall and upper abdominal wall pain. CT scan chest and abdomen negative 4. Left arm pain evaluated by orthopedic service x-rays are negative for any fractures or dislocations. PLAN: -Agree with discharge -Agree with follow-up visits to ENT and ophthalmology -Continue pain management Physician Foreign Exchange Student Coordinator note has been reviewed by physician. Signing provider agrees with the documented findings, assessment, and plan of care. Objective - Vital Signs Vital signs: Vital Signs Temp 98.1 F 08/30/23 08:00 Pulse 94 08/30/23 08:00 Resp 14 08/30/23 08:00 BP 166/107 08/30/23 08:00 Pulse Ox 97 08/30/23 08:00 FiO2 Intake & Output 08/29/23 08/30/23 08/30/23 18:59 06:59 18:59 Intake Total 118 236 Output Total 1200 800 Balance -1082 -800 236 Intake: Oral 118 236 Output: Urine 1200 800 Other: Voiding Method Urinal # Voids 2 - Labs CBC & Chem 7: 08/28/23 14:01 08/28/23 14:01
--- NOTE | 2023-08-31 00:13 | CONS ---
CONSULTATION OPHTHALMOLOGY CONSULT CHIEF COMPLAINT: Pain, left-sided orbit. HISTORY OF PRESENT ILLNESS: Mr. Dejesus is an 83-year-old male who had history of recent fall with trauma to the left side of the face. The patient complains of pain and swelling around the left eye, which occurred suddenly after the trauma and has been constant. The swelling has slightly improved. The patient denies vision loss or double vision. The patient does not have a syncopal episode. REVIEW OF SYSTEMS: Negative for fevers, chills, nausea, vomiting, chest pain, palpitations, shortness of breath, abdominal pain, constipation, diarrhea, or numbness/weakness of the extremities. PAST MEDICAL HISTORY: Atrial fibrillation, hyperlipidemia, hypertension, stage 3 kidney disease, gout. MEDICATIONS: 1. Vitamin D10. 2. Colchicine. 3. CoQ10. 4. Eliquis. 5. Cipro. 6. Isoptin. 7. Calcitriol. ALLERGIES: Allopurinol, Vasotec, MONIQUE inhibitors, buspirone, digoxin, hydralazine, lisinopril, metoprolol, NSAIDs, and statins. PAST SURGICAL HISTORY: Previous cataract surgery in both eyes, bowel resection, hernia repair, tonsillectomy, and cardioversion. SOCIAL HISTORY: Denies smoking. Never smoker. No current alcohol or drug use. PHYSICAL EXAMINATION: Ophthalmic exam reveals visual acuity is 20/50 at near with correction in the right eye and 20/50 at near with correction in the left eye. Pupils are equal and round and reactive to light. There is no afferent pupillary defect. Extraocular movements are full in both eyes. There is edema and ecchymosis of the upper and lower lid on the left side. There is a large laceration above the brow with approximating sutures. The conjunctivae white and there are no conjunctiva lacerations. Corneas clear. The anterior chambers within normal limits. Iris is within normal limits. The pupil is round. There is a posterior chamber intraocular lens in both eyes. Posterior exam in both eyes is limited. However, there is no retinal pathology. ASSESSMENT AND PLAN: 1. Orbital floor fracture, left side. The patient has a 4 mm displaced fracture of the left inferior orbital wall. There is no diplopia. There is no restriction of extraocular movements. There are no other signs of trauma to the globe. I recommend Afrin nasal spray b.i.d. for 3 days. No nose blowing for 2 weeks. Antibiotics should be given for a total of 7 days. There is no emergent indication of surgery as there is no displacement of the actual globe and there is no restriction of extraocular movements or diplopia. The patient understands that if such symptoms arise, the patient needs to report to the process treater or the ER immediately. The patient also should have a followup in approximately 1 week as an outpatient after discharge. 2. Laceration, left brow. This is well approximated and can be observed. Thank you for allowing me to participate in this patient's care. I recommend followup in 1 week as an outpatient. MMODL / IJN: [id number] /
== END 2023-08-30 10:35 | disposition home or self-care (01) ==
LOC: EC 12:44 → 6NMEDSUR 16:49
PROVIDERS: ADMIT Internal Medicine; ATTEND Internal Medicine
DX: S02.32XA Fracture of orbital floor, left side, initial encounter for closed fracture (principal); S01.112A Laceration without foreign body of left eyelid and periocular area, initial encounter; M25.522 Pain in left elbow; R07.89 Other chest pain; W10.1XXA Fall (on)(from) sidewalk curb, initial encounter; I16.0 Hypertensive urgency; I48.21 Permanent atrial fibrillation; E78.5 Hyperlipidemia, unspecified; I12.9 Hypertensive chronic kidney disease with stage 1 through stage 4 chronic kidney disease, or unspecified chronic kidney disease; N18.30 Chronic kidney disease, stage 3 unspecified; I25.10 Atherosclerotic heart disease of native coronary artery without angina pectoris; M10.9 Gout, unspecified; Z95.5 Presence of coronary angioplasty implant and graft; Z79.01 Long term (current) use of anticoagulants; Z79.899 Other long term (current) drug therapy; Z88.6 Allergy status to analgesic agent; Z23 Encounter for immunization
CPT/HCPCS: 96361 ×3; 96374; 90471; 99285; 36415; 93005; 97161; 80053; 83735; 85025; 85610; 85730; 73030; 73060; 73080; 71046; 72125; 70486; 70450; 71250; 74150; 90715; G0378 ×3; J2270